=== PATIENT | male | born 1980 | race African-American/Black ===

== ENCOUNTER 2016-06-29 20:42 | Emergency (ER) | payer SELFPAY ==
[2016-06-29 22:30] VITALS: BP 133/98
--- NOTE | 2016-06-29 23:39 | UC ---
Jaycee Gonzalez Michael, scribed for Dyan Kinsey DO on 06/29/16 at 2121 . Abdominal Pain Male HPI - HPI Summary HPI Summary: 35 y/o male comes to [facility] presenting with intermittent episodes of LLQ abd pain that started 2 days ago after eating enchiladas. The pt reports that the abd pain has gradually worsened over the past 2 days. The abd pain is aggravated with ambulation and sitting on soft surfaces. The abd is radiated to the back. The pt reports that he will randomly have sudden sharp pains while he is sitting. He describes the pain as a 7-8 out of 10 on a pain severity scale. He also c/o decreased appetite, fever, and chills. At home his temperature was 101.3 and fluctuated the past couple of days. He has increased intake of water. The pt also declines blood in stool, urine sx, and n/v/d. The PMHx is significant for diverticulitis with an abscess. The pt reports that his symptoms are similar to his previous with the abscess, but less severe. At the current visit there is general swelling but no lump is present. The FHx is significant for HTN. - History of Current Complaint Chief Complaint: UCAbdominalPain Stated Complaint: ABDOMINAL PAIN Time Seen by Provider: 06/29/16 20:58 Hx Obtained From: Patient, Medical Records Onset/Duration: Gradual Onset, Lasting Days, Still Present Timing: Intermittent Episodes Lasting: Severity Initially: Mild Severity Currently: Moderate Pain Intensity: 8 Pain Scale Used: 0-10 Numeric Location: Discrete At: LLQ Radiates: Yes Radiates to: Back, Flank Character: Sharp Aggravating Factor(s):: Movement Alleviating Factor(s): Nothing Associated Signs And Symptoms: Positive: Diaphoresis, Fever, Back Pain, Decreased Appetite, Other - abd pain. chills.. Negative: Cough, Chest Pain, Dizzy, Constipation, Blood in Stool, Urinary Symptoms, Nausea, Vomiting, Diarrhea - Allergies/Home Medications Allergies/Adverse Reactions: Allergies Allergy/AdvReac Type Severity Reaction Status Date / Time STRAWBERRIES Allergy Nausea Uncoded 06/29/16 20:54 Home Medications: Home Medications Aspirin TAB* [Aspirin 325 MG TAB*] 2 tab PO PRN 06/29/16 [History] PMH/Surg Hx/FS Hx/Imm Hx Endocrine History Of: Denies: Diabetes, Thyroid Disease Cardiovascular History Of: Denies: Cardiac Disorders, Hypertension, Congestive Heart Failure Respiratory History Of: Denies: COPD, Asthma GI/ History Of: Reports: Diverticulitis Denies: Ulcer, Renal Disease - Surgical History Surgical History: None - Family History Known Family History: Positive: Hypertension Negative: Cardiac Disease, Diabetes - Social History Occupation: Unemployed Lives: With Family Alcohol Use: Daily Alcohol Amount: 50 OUNCES/NIGHT Substance Use Type: Marijuana Substance Use Comment - Amount & Last Used: OCCASIONALLY Smoking Status (MU): Current Every Day Smoker Type: Cigarettes Amount Used/How Often: 1/2 PPD Length of Time of Smoking/Using Tobacco: 15 years Have You Smoked in the Last Year: Yes Household Exposure Type: Cigarettes - Immunization History Most Recent Influenza Vaccination: never Most Recent Tetanus Shot: UTD Most Recent Pneumonia Vaccination: never Review of Systems Constitutional: Fever, Chills Skin: Negative Eyes: Negative ENT: Negative Respiratory: Negative Cardiovascular: Negative Gastrointestinal: Negative - n/v/d., Abdominal Pain, Other - decreased appetite Genitourinary: Other - no blood in stool Motor: Negative Neurovascular: Negative Musculoskeletal: Negative Neurological: Negative Psychological: Negative All Other Systems Reviewed And Are Negative: Yes Physical Exam Triage Information Reviewed: Yes Appearance: Well-Appearing, Well-Nourished, Pain Distress - mild to moderate pain distress with movement Vital Signs: Initial Vital Signs Temp 98.9 F 06/29/16 20:49 Pulse 106 06/29/16 20:49 Resp 16 06/29/16 20:49 BP 159/90 06/29/16 20:49 Pulse Ox 100 06/29/16 20:49 Vital Signs Reviewed: Yes Eyes: Positive: Conjunctiva Clear. Negative: Discharge ENT: Positive: Hearing grossly normal. Negative: Muffled/hoarse voice Neck: Positive: Supple, Nontender Respiratory: Positive: Lungs clear, Normal breath sounds, No respiratory distress, No accessory muscle use Cardiovascular: Positive: RRR, No Murmur Abdomen Description: Positive: Soft, CVA Tenderness (L). Negative: Nontender - LLQ tenderness. exquisite flank tenderness over the flank, Distended, Guarding, McBurney's Point Tenderness Bowel Sounds: Positive: Hyperactive Musculoskeletal Exam: Normal Neurological: Positive: Alert, Muscle Tone Normal Psychological: Positive: Age Appropriate Behavior Skin Exam: Normal - dry. warm. nml color. Abd Pain Male Course/Dx - Course Course Of Treatment: pt will be transferred to [facility] [place] and Dr. Jung was consulted at 2153. The pt refuses an ambulance ride and was informed about the risk factors. - Differential Dx/Clinical Impression Differential Diagnosis/HQI/PQRI: Diverticulitis, Renal Colic, Ureteral Stone, Urinary Tract Infection Provider Diagnoses: flank pain, abd pain unknown luis, uti, hematuria Discharge - Discharge Plan Condition: Stable Disposition: AGAINST MEDICAL ADVICE Referrals: No Primary Care Phys,NOPCP [Primary Care Provider] - The documentation as recorded by the Jaycee miller Michael accurately reflects the service I personally performed and the decisions made by , Dyan Kinsey DO.
== END 2016-06-29 22:10 | disposition left against medical advice (07) ==
LOC: UCEAST 20:42
DX: R10.32 Left lower quadrant pain (principal); F17.210 Nicotine dependence, cigarettes, uncomplicated
CPT/HCPCS: 81003; 87086; 99212; G0463

== ENCOUNTER 2016-06-30 10:59 | Inpatient (IN) | payer SELFPAY ==
[~2016-06-30 10:59] MED LIST: Mouth Piece, Nicotine* 1 EACH CARTRIDGE INH ONE
[2016-06-30 11:35] LABS: Hematocrit 41 % (42-52); Hemoglobin 13.9 g/dl (14.0-18.0); Mean Corpuscular HGB Conc 34 g/dl (31-36); Mean Corpuscular Hemoglobin 32 pg (27-31); Mean Corpuscular Volume 95 fL (80-94); Mean Platelet Volume 8 um3 (7.4-10.4); Red Blood Count 4.35 10^6/ul (4.0-5.4); Red Cell Distribution Width 13 % (10.5-15); White Blood Count 12.3 10^3/ul (3.5-10.8)
[2016-06-30 11:38] LABS: Add Diff/Slide Review? Slide Review Added; Comments Flag Yes
[2016-06-30 11:49] LABS: ALT 19 U/L (7-52); AST 13 U/L (13-39); Albumin 4.6 g/dL (3.2-5.2); Alkaline Phosphatase 48 U/L (34-104); Amylase 35 U/L (29-103); Anion Gap 11 mmol/L (2-11); BUN/Creatinine Ratio 12.8 (8-20); Blood Urea Nitrogen 10 mg/dL (6-24); C Reactive Protein 314.01 mg/L (< 5.00); CO2 Carbon Dioxide 25 mmol/L (22-32); Calcium 10.2 mg/dL (8.6-10.3); Chloride 97 mmol/L (101-111); EGFR African American 144.8 (>60); EGFR Non-African American 112.6 (>60); Globulin 4.1 g/dL (2-4); Glucose 120 mg/dL (70-100); Lipase < 10 U/L (11.0-82.0); Potassium 3.7 mmol/L (3.5-5.0); Sodium 133 mmol/L (133-145); Total Protein 8.7 g/dL (6.4-8.9)
[2016-06-30] MEDS ORDERED: Piperac/Tazob 3.375 gm in NS* 3.375 GM/100 ML BAG IVPB ONE ×2 (12:34→18:30)
--- NOTE | 2016-06-30 12:41 | RAD ---
INDICATION: LEFT flank pain and hematuria. History of previous diverticulitis. COMPARISON: May 18, 2014 abdominal ultrasound and May 17, 2014 CT. TECHNIQUE: Multidetector CT images were obtained from the lung bases to the ischial tuberosities. Evaluation of the viscera is limited without IV contrast. Multiplanar reformation. REPORT: Unremarkable visualized inferior thorax. Negative unenhanced liver, gallbladder, pancreas, spleen. Negative for CT abnormality of the upper GI, small bowel, or retrocecal appendix. Arising from the posterior margin of the descending colon there is a 7 cm AP by 6.1 cm transverse by 10 cm cephalocaudal gas and fluid containing abscess collection at the LEFT paracolic gutter extending into the retroperitoneum with mild mass effect on the peripheral margin of the LEFT psoas muscle without an intervening fat plane. Moderate surrounding reticulation of the retroperitoneal and abdominal fat. Previous abscess collection at this location described on the May 17, 2014 exam measuring up to 2.8 x 1.9 x 3.6 cm. Mild colonic diverticulosis most prominent at the descending colon. Negative for ascites or free intraperitoneal air. Negative for hernias. Unchanged small LEFT adrenal nodule consistent with a benign lipid rich adenoma based on low density measurement and absence of an intervening change. Unremarkable RIGHT adrenal gland. Negative for urolithiasis or hydronephrosis. No focal renal lesions evident. The nondilated LEFT ureter courses through the peripheral margin of the LEFT lower quadrant inflammatory change. Unremarkable RIGHT ureter, largely decompressed urinary bladder, and visualized male urogenital structures. Normal size range 0.7 cm diameter LEFT external iliac lymph nodes. Negative for lymphadenopathy. Normal diameter abdominal aorta and iliac arteries. Physiologic distention of the IVC. Negative for suspicious osseous lesions. IMPRESSION: Probable diverticular disease related acute or possibly chronic progressive LEFT retroperitoneal abscess collection arising from the descending colon. Surgical consultation needed. Negative for associated bowel obstruction. Results discussed with Dr. Sutton 06/30/2016 12:36 PM EST
--- NOTE | 2016-06-30 13:40 | HP ---
H&P (Free Text) History and Physical: CC: Left flank pain, fever, chills. HPI: 35 yoM with prior h/o diverticulitis and abscess in 2014, presents to the ED with similar symptoms of L flank pain, sensation of mass, associated with fever to 102 and rigors. He reports he had eaten some corn on Saturday and then Saturday he started having L flank pain. He has had this occasionally but it usually resolves after less than 1 day. His symptoms persisted and became more severe. By he was avoiding eating because he thought it would make the pain worse. He started having fever and chills. He reports no diarrhea. He reports no dysuria, hematuria, or h/o kidney stones. He was seen at the [facility] last pm and was noted to have microscopic hematuria and dx'd with kidney stone. He was discharged but returned to the ED today because of the pain. PMH: Diverticulitis with abscess--inpt admission in 2014 that resolved with IV abx PSH: None Meds: None All: Strawberries; NKDA SH: +tob (10-20 pkyr); EtOH (12 pk beer/week); MJ no IVDA FH: Mother of aneurysm, HTN. No anesthesia reaction; no blood clots; no cancer. ROS: 14 pt review performed; Pertinents +/- as above, otherwise negative. PE: Vital Signs Temp 97.9 F 06/30/16 11:25 Pulse 92 06/30/16 13:30 Resp 18 06/30/16 11:25 BP 138/89 06/30/16 13:30 Pulse Ox 99 06/30/16 13:30 HEENT: NCAT; EOMI; anicteric sclera; mmm; no otorhinorrhea; dentition intact. Neck: symmetrical, no LILLIAN. Lungs: CTA B NO W/R/R. Heart: Reg s1s2 no M/R/G. Abd: No scars, softly distended; exquisitely tender in LLQ with palpable fullness; +guarding. Ext: Warm, no C/C/E; 2+ bilat DP/PT pulses. Laboratory Results - last 24 hr 06/30/16 06/30/16 06/30/16 11:20 11:20 11:20 WBC 12.3 H RBC 4.35 Hgb 13.9 L Hct 41 L MCV 95 H MCH 32 H MCHC 34 RDW 13 Plt Count 314 MPV 8 Neut % (Auto) 75.3 Lymph % (Auto) 6.4 L [place] % (Auto) 17.7 H Eos % (Auto) 0.5 Baso % (Auto) 0.1 Absolute Neuts (auto) 9.2 H Absolute Lymphs (auto) 0.8 L Absolute Monos (auto) 2.2 H Absolute Eos (auto) 0.1 Absolute Basos (auto) 0 Absolute Nucleated RBC 0.02 Nucleated RBC % 0.2 Sodium 133 Potassium 3.7 Chloride 97 L Carbon Dioxide 25 Anion Gap 11 BUN 10 Creatinine 0.78 Est GFR ( Amer) 144.8 Est GFR (Non-Af Amer) 112.6 BUN/Creatinine Ratio 12.8 Glucose 120 H Lactic Acid 1.0 Calcium 10.2 Total Bilirubin 1.70 H AST 13 ALT 19 Alkaline Phosphatase 48 C-Reactive Protein 314.01 H Total Protein 8.7 Albumin 4.6 Globulin 4.1 H Albumin/Globulin Ratio 1.1 Amylase 35 Lipase < [address] abd/pel noncontrast: 7 x 6 x 10 cm abscess arising from the descending colon with surrounding inflammatory changes; no kidney stones. IMP: 35 yo M with recurrent diverticulitis with abscess. PLAN/Recommendation: I discussed the findings with the patient and his . We discussed the management options including non-surgical treatment with IV abx , use of percutaneous drainage, and the role of surgery. At this point I think he is best served by surgical drainage of the abscess with sigmoid rsxn, end colostomy. We discussed the indications, risks, benefits, alternatives, and option of no treatment. We discussed expectations regarding hospital stay, overall recovery, and the need for subsequent surgery for colostomy reversal. The risks were explained, including, not limited to, bleeding, infection, scarring, pain, blood clots, pneumonia, visceral injury, need for additional procedures, and the risks of GETA. He had all questions answered. He states understanding and agrees to proceed.
[2016-06-30] MEDS ORDERED: Propofol* 10 MG/ML 20 ML BTL IV PUSH ONE ×2 (14:08→15:19)
[2016-06-30] MEDS ORDERED: Ketorolac INJ* 30 MG/ML 1 ML VIAL ONE (14:08)
[2016-06-30] MEDS ORDERED: Famotidine IV* 10 MG/ML 2 ML (20 mg) ONE ×2 (14:08→14:10)
[2016-06-30] MEDS ORDERED: Ondansetron INJ* 2 MG/ML VIAL ONE (14:08)
[2016-06-30] MEDS ORDERED: Lidocaine 2% PF* 5 ML VIAL ONE (14:08)
[2016-06-30] MEDS ORDERED: KETAMINE HCL* 50 MG/ML 10 ML VIAL ONE (14:09)
[2016-06-30] MEDS ORDERED: fentaNYL* 50 MCG/ML 5 ML VIAL (250 MCG VIAL) ONE ×2 (14:09→15:02)
[2016-06-30] MEDS ORDERED: Midazolam* 1 MG/ML 5 ML VIAL (5 MG) ONE (14:09)
[2016-06-30] MEDS ORDERED: Rocuronium* 10 MG/ML VIAL ONE ×2 (14:10→15:06)
[2016-06-30] MEDS ORDERED: Labetalol IV* 5 MG/ML 20 ML VIAL ONE (15:05)
[2016-06-30] MEDS ORDERED: Metoclopramide IV* 5 MG/ML 2 ML VIAL ONE (15:38)
[2016-06-30] MEDS ORDERED: Neostigmine Methylsulfate* 2 MG/2 ML SYRINGE ONE (16:35)
[2016-06-30] MEDS ORDERED: Glycopyrrolate IV* 0.2 MG/ML 1 ML VIAL ONE (16:35)
[2016-06-30] MEDS ORDERED: HYDROmorphone* 1 MG/ML 1 ML SYR ONE (16:37)
[2016-06-30] MEDS ORDERED: Bupivacaine 0.5% W/EPI SDV* 30 ML VIAL ONE (16:58)
--- NOTE | 2016-06-30 17:00 | ED ---
Jazmin Gonzalez Rebecca, scribed for Simeon Sutton MD on 06/30/16 at 1117 . Back Pain - HPI Summary HPI Summary: Pt is a 35 y/o M who presents to ED c/o L flank pain. Pain began suddenly 4 days ago and has been intermittent since onset. Reports pain is only present when relaxing on a soft surface. At its worst, pain is 4/10, currently pain is 0 /10. When present, pain is characterized as sharp. Sx aggravated by relaxing, alleviated by movement. Denies N/V. PMHx diverticulitis. States that he ate "something I shouldn't have" a few days ago, prior to onset of pain. - History of Current Complaint Chief Complaint: EDFlankPain Stated Complaint: LOWER BACK PAIN/BLOOD IN URINE Time Seen by Provider: 06/30/16 11:07 Hx Obtained From: Patient Onset/Duration: Sudden Onset - 4 days ago Onset/Duration: Started Days Ago - 4 days ago Timing: Intermittent - Present when relaxed Back Pain Location: Is Discrete @ - L flank Severity Initially: Moderate Severity Currently: None Pain Intensity: 0 Pain Scale Used: 0-10 Numeric Character: Sharp Aggravating Symptom(s): Nothing - Rest Alleviating Symptom(s): Position - Movement Associated Signs And Symptoms: Positive: Negative - Allergies/Home Medications Allergies/Adverse Reactions: Allergies Allergy/AdvReac Type Severity Reaction Status Date / Time STRAWBERRIES Allergy Nausea Uncoded 06/30/16 13:03 PMH/Surg Hx/FS Hx/Imm Hx Endocrine/Hematology History: Denies: Hx Diabetes, Hx Systemic Lupus Erythematosus, Hx Thyroid Disease Cardiovascular History: Denies: Hx Congestive Heart Failure, Hx Hypertension Respiratory History: Denies: Hx Asthma, Hx Chronic Obstructive Pulmonary Disease (COPD) GI History: Reports: Other GI Disorders - Hx diverticulitis Denies: Hx Ulcer History: Denies: Hx Renal Disease - Cancer History Hx Chemotherapy: No Infectious Disease History: No Infectious Disease History: Denies: Hx Hepatitis, Hx Human Immunodeficiency Virus (HIV), Traveled Outside the [place] in Last 30 Days - Family History Known Family History: Positive: Hypertension Negative: Cardiac Disease, Diabetes - Social History Alcohol Use: Daily Alcohol Amount: 50 OUNCES/NIGHT Substance Use Type: Reports: Marijuana Substance Use Comment - Amount & Last Used: OCCASIONALLY Smoking Status (MU): Current Every Day Smoker Type: Cigarettes Amount Used/How Often: 1/2 PPD Length of Time of Smoking/Using Tobacco: 15 years Have You Smoked in the Last Year: Yes Review of Systems Negative: Vomiting, Nausea Positive: Arthralgia - L flank pain All Other Systems Reviewed And Are Negative: Yes Physical Exam Triage Information Reviewed: Yes Vital Signs On Initial Exam: Initial Vitals Temp Pulse Resp BP Pulse Ox 97.8 F 110 16 149/97 99 06/30/16 11:01 06/30/16 11:01 06/30/16 11:01 06/30/16 11:01 06/30/16 11:01 Vital Signs Reviewed: Yes Appearance: Positive: Well-Appearing, No Pain Distress Skin: Positive: Warm, Skin Color Reflects Adequate Perfusion, Dry Head/Face: Positive: Normal Head/Face Inspection Eyes: Positive: EOMI, LONNIE ENT: Positive: Normal ENT inspection Neck: Positive: Supple, Nontender Respiratory/Lung Sounds: Positive: Clear to Auscultation, Breath Sounds Present Cardiovascular: Positive: RRR, Pulses are Symmetrical in both Upper and Lower Extremities Abdomen Description: Positive: Nontender, Soft Bowel Sounds: Positive: Present Musculoskeletal: Positive: Normal, Strength/ROM Intact Neurological: Positive: Normal, Sensory/Motor Intact, Alert, Oriented to Person Place, Time Psychiatric: Positive: Normal, Affect/Mood Appropriate Diagnostics - Vital Signs Vital Signs Temp Pulse Resp BP Pulse Ox 06/30/16 11:01 97.8 F 110 16 149/97 99 - Laboratory Lab Results: Lab Results 06/30/16 06/30/16 06/30/16 Range/Units 11:20 11:20 11:20 WBC 12.3 H (3.5-10.8) 10^3/ul RBC 4.35 (4.0-5.4) 10^6/ul Hgb 13.9 L (14.0-18.0) g/dl Hct 41 L (42-52) % MCV 95 H (80-94) fL MCH 32 H (27-31) pg MCHC 34 (31-36) g/dl RDW 13 (10.5-15) % Plt Count 314 (150-450) 10^3/ul MPV 8 (7.4-10.4) um3 Neut % (Auto) 75.3 (38-83) % Lymph % (Auto) 6.4 L (25-47) % [place] % (Auto) 17.7 H (1-9) % Eos % (Auto) 0.5 (0-6) % Baso % (Auto) 0.1 (0-2) % Absolute Neuts (auto) 9.2 H (1.5-7.7) 10^3/ul Absolute Lymphs (auto) 0.8 L (1.0-4.8) 10^3/ul Absolute Monos (auto) 2.2 H (0-0.8) 10^3/ul Absolute Eos (auto) 0.1 (0-0.6) 10^3/ul Absolute Basos (auto) 0 (0-0.2) 10^3/ul Absolute Nucleated RBC 0.02 10^3/ul Nucleated RBC % 0.2 Sodium 133 (133-145) mmol/L Potassium 3.7 (3.5-5.0) mmol/L Chloride 97 L (101-111) mmol/L Carbon Dioxide 25 (22-32) mmol/L Anion Gap 11 (2-11) mmol/L BUN 10 (6-24) mg/dL Creatinine 0.78 (0.67-1.17) mg/dL Est GFR ( Amer) 144.8 (>60) Est GFR (Non-Af Amer) 112.6 (>60) BUN/Creatinine Ratio 12.8 (8-20) Glucose 120 H (70-100) mg/dL Lactic Acid 1.0 (0.5-2.0) mmol/L Calcium 10.2 (8.6-10.3) mg/dL Total Bilirubin 1.70 H (0.2-1.0) mg/dL AST 13 (13-39) U/L ALT 19 (7-52) U/L Alkaline Phosphatase 48 (34-104) U/L C-Reactive Protein 314.01 H (< 5.00) mg/L Total Protein 8.7 (6.4-8.9) g/dL Albumin 4.6 (3.2-5.2) g/dL Globulin 4.1 H (2-4) g/dL Albumin/Globulin Ratio 1.1 (1-3) Amylase 35 (29-103) U/L Lipase < 10 L (11.0-82.0) U/L Result Diagrams: 06/30/16 11:20 06/30/16 11:20 Lab Statement: Any lab studies that have been ordered have been reviewed, and results considered in the medical decision making process. - CT Abd/Pel CT CT Interpretation: Positive (See Comments) - Probable diverticular disease related acute or possibly chronic progressive LEFT retroperitoneal abscess collection arising from the descending colon. Surgical consultation needed. Negative for associated bowel obstruction. Results discussed with Dr. Sutton 06/30 12:[address] Interpretation Completed By: Radiologist Back Pain Course/Dx - Course Assessment/Plan: Pt is a 35 y/o M who presents to ED c/o L flank pain. Pain began suddenly 4 days ago and has been intermittent since onset. Reports pain is only present when relaxing on a soft surface. At its worst, pain is 4/10, currently pain is 0/10. When present, pain is characterized as sharp. Sx aggravated by relaxing, alleviated by movement. Denies N/V. PMHx diverticulitis. States that he ate "something I shouldn't have" a few days ago, prior to onset of pain. Blood works shows a WBC of 12.3, mild anemia, glucose of 120, CRP of 314. Abd/Pel CT is read Probable diverticular disease related acute or possibly chronic progressive LEFT retroperitoneal abscess collection arising from the descending colon. Surgical consultation needed. Negative for associated bowel obstruction. In the ER course, pt was given IV fluids, 1 doze of Zosyn. I disclosed my case with Dr. Husain from surgery who came and evaluated the pt. After his assessment, he determined that he will accept the pt for admission and will take the pt to the OR. He is hemodynamically stable and AxOx3. - Diagnoses Differential Diagnosis/HQI/PQRI: Positive: Other - REnal colic, diverticulitis, constipation, colitis Provider Diagnoses: Bowel perforation - Provider Notifications Discussed Care of Patient With: Dr. Husain, surgeon, who will evaluate pt in the ED. Time Discussed With Above Provider: 12:40 Discharge - Discharge Plan Condition: Stable Disposition: ADMITTED TO [facility] documentation as recorded by the Jazmin miller Rebecca accurately reflects the service I personally performed and the decisions made by me, Simeon Sutton MD.
[2016-06-30] MEDS ORDERED: fentaNYL* 50 MCG/ML 2 ML VIAL (100 MCG VIAL) ONE (17:05)
[2016-06-30] MEDS ORDERED: DiMENhydriNATE IV* 50 MG/ML VIAL IV PUSH PRN (17:25)
[2016-06-30] MEDS ORDERED: Ondansetron INJ* 2 MG/ML VIAL IV PRN (17:25)
[2016-06-30] MEDS ORDERED: HYDROmorphone* 1 MG/ML 1 ML SYR IV PRN (17:25)
[2016-06-30] MEDS ORDERED: fentaNYL* 50 MCG/ML 2 ML VIAL (100 MCG VIAL) IV PRN (17:25)
[2016-06-30] MEDS ORDERED: Ketorolac INJ* 30 MG/ML 1 ML VIAL IM PRN (17:27)
[2016-06-30] MEDS ORDERED: diPHENhydraMINE IV* 25 MG in NS 0.9% 50 ML* 50 ML IVPB PRN (17:32)
[2016-06-30] MEDS ORDERED: Al Hydrox/Mg Hydrox/Simet LIQ* 30 ML UDC PO PRN (17:33)
--- NOTE | 2016-06-30 17:39 | SURGPN ---
Brief Operative Note - Surgery Procedures: PREOP/POSTOP DX: COLONIC DIVERTICULITIS WITH ABSCESS PROC: EXPL LAPAROTOMY, DRAINAGE OF RETROPERITONEAL ABSCESS, DIVERTING COLOSTOMY SURG: MECENAS ASSIST: NONE ANES: GET/TOAL EBL: 50ML IVF: 3.1 L LR U/O: 150 ML SPEC: ABSCESS FLUID DRAIN: 10MM ANA COMPL: NONE COND: STABLE TO RR
[2016-06-30] MEDS ORDERED: Nicotine Inhaler* 10 MG AMP INH PRN (20:08)
[2016-07-01] MEDS: HYDROmorphone* 1 MG/ML 1 ML SYR IV SLOW PU PRN ×5 (00:59→23:56)
[2016-07-01] MEDS: Piperac/Tazob 3.375 gm in NS* 3.375 GM/100 ML BAG IVPB SCH ×4 (01:02→18:42)
[2016-07-01 05:27] LABS: Urine Bacteria Absent (Absent); Urine Bilirubin Negative (Negative); Urine Glucose Negative (Negative); Urine Nitrite Negative (Negative)
[2016-07-01 07:10] LABS: Calcium 8.4 mg/dL (8.6-10.3); EGFR African American 156.3 (>60); EGFR Non-African American 121.6 (>60)
[2016-07-01 07:13] LABS: Hematocrit 35 % (42-52); Hemoglobin 11.7 g/dl (14.0-18.0); Mean Corpuscular HGB Conc 33 g/dl (31-36); Mean Corpuscular Hemoglobin 32 pg (27-31); Mean Corpuscular Volume 95 fL (80-94); Mean Platelet Volume 8 um3 (7.4-10.4); Red Blood Count 3.69 10^6/ul (4.0-5.4); Red Cell Distribution Width 13 % (10.5-15); White Blood Count 10.9 10^3/ul (3.5-10.8)
[2016-07-01 07:16] LABS: Comments Flag Yes
[2016-07-01] MEDS: Ketorolac INJ* 30 MG/ML 1 ML VIAL IV SCH ×3 (09:47→22:26)
--- NOTE | 2016-07-01 09:47 | PN ---
Progress Note - Progress Note SOAP: Subjective: C/o right sided abd pain, pain in stomach when he swallows, and dry throat. Overall feels he is better. Objective: Vital Signs Temp 98.1 F 07/01/16 07:51 Pulse 89 07/01/16 07:51 Resp 22 07/01/16 08:17 BP 148/101 07/01/16 07:51 Pulse Ox 99 07/01/16 07:51 awake, alert, in NAD abd: dressings intact; ostomy pink (-) gas; distended abd; ANA with SS o/p; tenderness right side. u/o=325/8h; ANA=30ml/8h Laboratory Results - last 24 hr 06/30/16 06/30/16 06/30/16 11:20 11:20 11:20 WBC 12.3 H RBC 4.35 Hgb 13.9 L Hct 41 L MCV 95 H MCH 32 H MCHC 34 RDW 13 Plt Count 314 MPV 8 Neut % (Auto) 75.3 Lymph % (Auto) 6.4 L [place] % (Auto) 17.7 H Eos % (Auto) 0.5 Baso % (Auto) 0.1 Absolute Neuts (auto) 9.2 H Absolute Lymphs (auto) 0.8 L Absolute Monos (auto) 2.2 H Absolute Eos (auto) 0.1 Absolute Basos (auto) 0 Absolute Nucleated RBC 0.02 Nucleated RBC % 0.2 Sodium 133 Potassium 3.7 Chloride 97 L Carbon Dioxide 25 Anion Gap 11 BUN 10 Creatinine 0.78 Est GFR ( Amer) 144.8 Est GFR (Non-Af Amer) 112.6 BUN/Creatinine Ratio 12.8 Glucose 120 H Lactic Acid 1.0 Calcium 10.2 Total Bilirubin 1.70 H AST 13 ALT 19 Alkaline Phosphatase 48 C-Reactive Protein 314.01 H Total Protein 8.7 Albumin 4.6 Globulin 4.1 H Albumin/Globulin Ratio 1.1 Amylase 35 Lipase < 10 L Urine Color Urine Appearance Urine pH Ur Specific [place] Urine Protein Urine Ketones Urine Blood Urine Nitrate Urine Bilirubin Urine Urobilinogen Ur Leukocyte Esterase Urine WBC (Auto) Urine RBC (Auto) Urine Bacteria Urine Glucose 07/01/16 07/01/16 07/01/16 05:10 06:30 06:30 WBC 10.9 H RBC 3.69 L Hgb 11.7 L Hct 35 L MCV 95 H MCH 32 H MCHC 33 RDW 13 Plt Count 340 MPV 8 Neut % (Auto) 71.0 Lymph % (Auto) 8.8 L [place] % (Auto) 19.7 H Eos % (Auto) 0.2 Baso % (Auto) 0.3 Absolute Neuts (auto) 7.7 Absolute Lymphs (auto) 1.0 Absolute Monos (auto) 2.1 H Absolute Eos (auto) 0 Absolute Basos (auto) 0 Absolute Nucleated RBC 0 Nucleated RBC % 0 Sodium 132 L Potassium 4.0 Chloride 100 L Carbon Dioxide 25 Anion Gap 7 BUN 8 Creatinine 0.73 Est GFR ( Amer) 156.3 Est GFR (Non-Af Amer) 121.6 BUN/Creatinine Ratio 11.0 Glucose 129 H Lactic Acid Calcium 8.4 L Total Bilirubin AST ALT Alkaline Phosphatase C-Reactive Protein Total Protein Albumin Globulin Albumin/Globulin Ratio Amylase Lipase Urine Color [place] Urine Appearance Cloudy Urine pH 5.0 Ur Specific [place] 1.030 Urine Protein 1+(30 mg/dl) H Urine Ketones Trace H Urine Blood 1+ H Urine Nitrate Negative Urine Bilirubin Negative Urine Urobilinogen Positive H Ur Leukocyte Esterase Negative Urine WBC (Auto) Trace(0-5/hpf) Urine RBC (Auto) 3+(>10/hpf) H Urine Bacteria Absent Urine Glucose Negative Assessment: POD#1 s/p abscess drainage/colostomy for diverticular abscess. Plan: Sips only. Cont Zosyn and ANA drain. Await GI fct. Pulm toilet. Ambulate.
--- NOTE | 2016-07-01 10:45 | OP ---
CC: [facility] OPERATIVE REPORT: DATE OF OPERATION: 06/30/16 DATE OF : 78 SURGEON: Marcus Husain MD WEATHER ANALYST: None. ANESTHESIOLOGIST: Dr. Saucedo. ANESTHESIA: General endotracheal. PRE-OP DIAGNOSIS: Colonic diverticulitis with abscess. POST-OP DIAGNOSIS: Colonic diverticulitis with abscess. OPERATIVE PROCEDURE: Exploratory laparotomy, drainage of retroperitoneal abscess, and diverting col ostomy. ESTIMATED BLOOD LOSS: 50 mL. IV FLUIDS: 3.1 L of crystalloids. SPECIMEN: Abscess fluid for culture and sensitivity. DRAINS: 10-mm Wayne-Rogers. COMPLICATIONS: None. COUNT: Instrument, needle, and sponge counts were correct. DESCRIPTION OF PROCEDURE: The patient was brought to the operating room and placed on the table sup ine. Sequential compression devices were placed on both lower extremities. General anesthesia was administered. A Pisano catheter was placed. His abdomen was prepped and draped in the usual sterile fashion. A time-out was performed. A midline laparotomy was created and after entering the peritoneal cavity, incision was further exte nded from about 5 inches above the umbilicus down to the pelvis. There was a piece of omentum adheri ng to the sigmoid colon. This was freed and the bowel was inspected. The small bowel appeared to b e normal from the ileocecal valve to the ligament to Treitz. Liver and gallbladder were normal. Th e ascending colon and transverse colon were normal. The descending colon was normal to the point wh ere in the mid descending colon, the bowel was extremely thickened all the way down to the area of t he sigmoid colon and there was edema throughout the bowel, along with the mesentery and the bowel wa s hard and quite scarred down. The distal sigmoid and rectum were normal. The area of the abscess was noted to be retroperitoneal on the CT scan and so the approach to the abscess was from the later al aspect. The white line of Toldt was followed from the sigmoid colon proximally to the area where the retroperitoneum became very firm and thickened and it was difficult to mobilize the colon from this site. Ultimately, I placed an 18- gauge needle into the retroperitoneum just lateral to the co thien and aspirated and this returned thick george pus. The needle was withdrawn and that fluid was subm itted for culture and sensitivity and then using a curved clamp, I entered into the site and entered into a large abscess cavity. Suction was placed into this. It was aspirated of all pus and then t he abscess cavity was irrigated. Because of the dense inflammation of the colon and edema in the de sentery, it was thought it was unsafe to try to perform a resection there. So, therefore it was dec ided to just divert without attempting resection. The normal-appearing bowel just proximal to the a kaushal of inflammation was mobilized and I had to take down the splenic flexure which was performed wit h a LigaSure and the use of the Bookwalter retractor. Once the splenic flexure was taken down, I fu rther mobilized the transverse colon to find the gastrocolic ligament to get adequate length on the colon. The colon was divided just proximal to the inflamed area using a JENARO-80 stapler. A 10-mm Wayne-Rogers drain was placed through a separate stab wound in the left flank and the drain was placed into the abscess cavity. The initial site for the ostomy was selected in the left lower quadrant and after excising a disc of skin and creating the aperture, it was discovered that there was an inadequate length on the bowel for this although it was felt that there was adequate length p reviously. Therefore, I had to close this wound using #1 Polysorb to close the posterior rectus carr th from the inside in a running fashion and the anterior rectus sheath was closed with interrupted # 1 Polysorbs. The skin was closed there with xin transversely and the ostomy site was re-sited m ore superiorly above the umbilicus on the left side. After creating the aperture in the abdominal w all, the bowel was brought through this with ease. The abdomen was irrigated with warm saline and a fter assuring counts to be correct, the abdomen was closed with #1 Polysorb running for the midline fascia. The skin incision was partially closed with xin packed in between and the colostomy was matured with 4-0 Polysorb and a digit was placed within the lumen to assure its patency. The ostom y appeared pink and viable. The drain was sutured to the skin with 3-0 Surgipro and placed to sucti on bulb. Dressings were applied and ostomy appliance. The patient tolerated the procedure well. H e was extubated and transferred to recovery room in stable condition. [id number]/[facility] #: [id number]
[2016-07-01] MEDS: Ondansetron INJ* 2 MG/ML VIAL IV PRN (20:18)
[2016-07-02] MEDS: Ondansetron INJ* 2 MG/ML VIAL IV PRN ×2 (01:16→06:59)
[2016-07-02] MEDS: Piperac/Tazob 3.375 gm in NS* 3.375 GM/100 ML BAG IVPB SCH ×4 (01:19→18:43)
[2016-07-02 06:51] LABS: Hematocrit 33 % (42-52); Mean Corpuscular HGB Conc 34 g/dl (31-36); Mean Corpuscular Hemoglobin 32 pg (27-31); Mean Corpuscular Volume 94 fL (80-94); Mean Platelet Volume 8 um3 (7.4-10.4); Red Blood Count 3.45 10^6/ul (4.0-5.4); Red Cell Distribution Width 13 % (10.5-15); White Blood Count 10.7 10^3/ul (3.5-10.8)
[2016-07-02] MEDS: HYDROmorphone* 1 MG/ML 1 ML SYR IV SLOW PU PRN (07:01)
[2016-07-02 07:14] LABS: BUN/Creatinine Ratio 11.3 (8-20); Calcium 9.1 mg/dL (8.6-10.3); EGFR African American 188.8 (>60); EGFR Non-African American 146.8 (>60); Potassium 3.5 mmol/L (3.5-5.0)
--- NOTE | 2016-07-02 09:27 | SURGPN ---
Subjective - Introduction -: Doing well, denies any more nausea or vomiting. Minimal incisional pain, ambulatory down the sher. Denies fever or chills. - Medications -: Active Medications Generic Name Dose Route Start Last Admin Trade Name Freq PRN Reason Stop Dose Admin Al Hydrox/Mg Hydrox/Simethicone 30 ml 06/30/16 17:33 Maalox Plus* PO Q6H PRN HEARTBURN Hydromorphone HCl 1 mg 06/30/16 17:31 07/02/16 07:01 Dilaudid Iv* IV SLOW PU 1 mg Q2H PRN Administration PAIN Diphenhydramine HCl 25 mg/ 50.5 mls @ 101 mls/hr 06/30/16 17:32 Sodium Chloride IVPB Q6H PRN ITCHING Piperacillin Sod/Tazobactam Sod 3.375 gm in 100 mls @ 200 mls/hr 07/01/16 00: 30 07/02/16 07:33 Zosyn 3.375 Gm In Ns Premix* IVPB 200 mls/hr Q6H [facility] Administration Lactated Ringer's 1,000 mls @ 0 mls/hr 07/01/16 21:46 Lactated Ringers 1000 Ml Bag* IV PER RATE PRN IF U/O LESS THAN 150 ML/4 HRS Wide Open Potassium Chloride/Dextrose 1,000 mls @ 125 mls/hr 07/02/16 09:00 D5w 1/2 Ns Kcl 20 Meq 1000 Ml* IV PER RATE [facility] Lactated Ringer's 1,000 mls @ 125 mls/hr 07/02/16 10:00 Lactated Ringers 1000 Ml Bag* IV PER RATE [facility] Ketorolac Tromethamine 30 mg 07/02/16 08:00 Toradol Inj* IV 07/07/16 02:01 Q6H [facility]OT[facility] Nicotine 10 mg 06/30/16 20:08 06/30/16 20:35 Nicotine Inhaler* INH 10 mg Q2H PRN Administration CRAVINGS Ondansetron HCl 4 mg 06/30/16 17:27 07/02/16 06:59 Zofran Inj* IV 4 mg Q4H PRN Administration NAUSEA/VOMITING Objective - Objective -: Alert and oriented, walking down sher, in NAD. - Intake and Output -: Intake & Output 06/30/16 07/01/16 07/02/16 07/03/16 05:59 06:59 06:59 06:59 Intake Total 4644 Output Total 1155 Balance 3489 Weight Intake: IV Fluids 4197 LR 4158 NS 39 IVPB 207 Zosyn 207 Oral 240 Output: ANA #1 30 Pisano 875 Colostomy Emesis 250 Other: Estimated Blood Loss Comment Surgical Physical Exam - Comments -: Vitals reviewed, afebrile. Lungs CTA bilaterally. Abdomen soft and mildly distended. Moderate incisional tenderness. No gaurding or rigidity. Incisions clean and dry. Packing gauze and dressing changed today. Stoma pink and viable with gtts pinkish serous output. J-vac with 20cc SS output. Ext. with no edema Pisano with pink turbid urine. Assessment and Plan - Assessment -: A 35 y/o gentleman, s/p exploratory laparotomy with diverting colostomy, clinically and hemodynamically stable. - Plan Surgical Plan of Care: Increase Activity Additional Comments: Post-op ileus, increase activity, ice chips for now. Hypertension, patient has never seen a primary care provider in the past. Will call medical services for a consult by attending hospitalist. Await bowel functions. Dressing changed today, next dressing change on Saturday or prn if saturated.
[2016-07-02] MEDS: Ketorolac INJ* 30 MG/ML 1 ML VIAL IV SCH ×3 (10:11→20:12)
[2016-07-02] MEDS: D5W 1/2 NS KCl 20 Meq 1000 ML* 1,000 ML IV SCH ×2 (10:11→20:18)
[2016-07-02] MEDS ORDERED: Lidocaine 2% JELLY* 6 ML JELLY TOPICAL ONE (13:15)
[2016-07-02] MEDS ORDERED: Lidocaine 2% VISCOUS* 15 ML UDC PO ONE (13:19)
[2016-07-02] MEDS: amLODIPine TAB* 5 MG PO SCH (13:27)
[2016-07-02] MEDS ORDERED: Labetalol IV* 5 MG/ML 20 ML VIAL IV PUSH PRN (13:33)
--- NOTE | 2016-07-02 13:33 | CONSULT ---
Subjective Date of Service: 07/02/16 Interval History: 35 yo M with no PMH p/w abdominal pain, found to have diverticulitis with abscess, now s/p ex-lap, abscess drainage and diverting colostomy. Found to have elevated BPs over past days. Patient reports no hx of HTN that he is aware of although mother had HTN. Denies HARPER, has had some N/V during the hospitalization. Feels pain has been well controlled after surgery. Is currently on diet of ice chips. States he has not seen a doctor in a few years. Family History: Unchanged from Admission - As per initial H&P Social History: Unchanged from Admission - As per initial H&P Past Medical History: Unchanged from Admission - As per initial H&P Review of Systems - Measurements Intake and Output: Intake and Output Last 24 Hours 06/30/16 07/01/16 07/02/16 07/03/16 05:59 06:59 06:59 06:59 Intake Total 4644 Output Total 1155 135 Balance 3489 -135 Weight Intake: IV Fluids 4197 LR 4158 NS 39 IVPB 207 Zosyn 207 Oral 240 Output: ANA #1 30 Pisano 875 135 Colostomy Emesis 250 Other: Estimated Blood Loss Comment - Review of Systems Constitutional Symptoms: Negative: Fever Dermatology: Positive: Normal HEENT: Positive: Normal Eyes: Positive: Normal Thyroid: Positive: Normal Pulmonary: Positive: Normal Cardiology: Positive: Normal Gastroenterology: Positive: Abdominal Pain, Nausea, Vomiting Endocrinology: Positive: Normal Neurology: Positive: Normal Psychiatry: Positive: Normal Objective Active Medications: Al Hydrox/Mg Hydrox/Simethicone (Maalox Plus*) 30 ml PO Q6H PRN PRN Reason: HEARTBURN Amlodipine Besylate (Norvasc Tab*) 5 mg PO DAILY [facility] Hydromorphone HCl (Dilaudid Iv*) 1 mg IV SLOW PU Q2H PRN PRN Reason: PAIN Last Admin: 07/02/16 07:01 Dose: 1 mg Diphenhydramine HCl 25 mg/ (Sodium Chloride) 50.5 mls @ 101 mls/hr IVPB Q6H PRN PRN Reason: ITCHING Piperacillin Sod/Tazobactam Sod (Zosyn 3.375 Gm In Ns Premix*) 3.375 gm in 100 mls @ 200 mls/hr IVPB Q6H [facility] Last Admin: 07/02/16 07:33 Dose: 200 mls/hr Lactated Ringer's (Lactated Ringers 1000 Ml Bag*) 1,000 mls @ 0 mls/hr IV PER RATE PRN; Wide Open PRN Reason: IF U/O LESS THAN 150 ML/4 HRS Last Admin: 07/02/16 11:30 Dose: 999 mls/hr Potassium Chloride/Dextrose (D5w 1/2 Ns Kcl 20 Meq 1000 Ml*) 1,000 mls @ 125 mls/hr IV PER RATE [facility] Last Admin: 07/02/16 10:11 Dose: 125 mls/hr Lactated Ringer's (Lactated Ringers 1000 Ml Bag*) 1,000 mls @ 125 mls/hr IV PER RATE [facility] Ketorolac Tromethamine (Toradol Inj*) 30 mg IV Q6H [facility] Stop: 07/07/16 02:01 Last Admin: 07/02/16 10:11 Dose: 30 mg Nicotine (Nicotine Inhaler*) 10 mg INH Q2H PRN PRN Reason: CRAVINGS Last Admin: 06/30/16 20:35 Dose: 10 mg Ondansetron HCl (Zofran Inj*) 4 mg IV Q4H PRN PRN Reason: NAUSEA/VOMITING Last Admin: 07/02/16 06:59 Dose: 4 mg Vital Signs 07/01/16 07/01/16 07/01/16 15:03 15:28 16:14 Temperature 97.9 F Pulse Rate 91 89 Respiratory 20 16 Rate Blood Pressure 154/92 148/94 (mmHg) O2 Sat by Pulse 98 Oximetry 07/01/16 07/01/16 07/01/16 19:40 20:24 21:22 Temperature 98.5 F Pulse Rate 88 Respiratory 20 16 Rate Blood Pressure 160/98 (mmHg) O2 Sat by Pulse 99 99 Oximetry 07/02/16 07/02/16 07/02/16 07:01 07:24 11:38 Temperature 98.6 F 98.1 F Pulse Rate 105 92 Respiratory 18 16 16 Rate Blood Pressure 162/105 145/88 (mmHg) O2 Sat by Pulse 97 100 Oximetry 07/02/16 12:04 Temperature Pulse Rate Respiratory 16 Rate Blood Pressure (mmHg) O2 Sat by Pulse 100 Oximetry Oxygen Devices in Use Now: None Appearance: Young, AAM, laying in bed in NAD Eyes: No Scleral Icterus Ears/Nose/Mouth/Throat: Mucous Membranes Moist Neck: NL Appearance and Movements; NL JVP Respiratory: Symmetrical Chest Expansion and Respiratory Effort, Clear to Auscultation Cardiovascular: NL Sounds; No Murmurs; No JVD, RRR Abdominal: - - Dressing in place over midline incision, appears c/d/i, ostomy in place along with ANA drain, soft, BS hyperactive, non-tender Lymphatic: No Cervical Adenopathy Extremities: No Edema Skin: No Rash or Ulcers Neurological: Alert and Oriented x 3 Result Diagrams: 07/02/16 06:31 07/02/16 06:31 Additional Lab and Data: Assessment/Plan - Billing 35 yo M with diverticulitis and abscess s/p ex-lap, abscess drainage and diverting colostomy found to have elevated BPs. Patient may have underlying HTN (has FH) although pressures may be exacerbated by the current situation (surgery, IVF). For now will start patient on a low dose of Amlodipine and will write for prn Labetalol for SBP > 180. Will continue to follow and see how he settles out over the next few days. Thank you for this consult.
--- NOTE | 2016-07-02 14:43 | PN ---
Progress Note - Progress Note SOAP: Subjective: Bloated and belching. Emesis last night was coffee ground. Discussed I/R/B/A of NGT. He would like me to try to place it. Objective: Vital Signs Temp 98.1 F 07/02/16 11:38 Pulse 92 07/02/16 11:38 Resp 16 07/02/16 12:04 BP 145/88 07/02/16 11:38 Pulse Ox 100 07/02/16 12:04 Intake & Output 07/01/16 07/02/16 07/02/16 18:59 06:59 18:59 Intake Total 1422 3222 Output Total 365 790 135 Balance 1057 2432 -135 Intake: IV Fluids 1322 2875 LR 1302 2856 NS 20 19 IVPB 100 107 Zosyn 100 107 Oral 240 Output: ANA #1 15 15 Pisano 350 525 135 Emesis 250 NAD sitting in chair. NGT placed with 2% lidocaine jelly/viscous. Position confirmed by auscultation. Secured at 58cm. Initially blood and coffee ground effluent changed to bilous. 600ml returned immediately. Laboratory Results - last 24 hr 07/02/16 07/02/16 06:31 06:31 WBC 10.7 RBC 3.45 L Hgb 11.0 L Hct 33 L MCV 94 MCH 32 H MCHC 34 RDW 13 Plt Count 360 MPV 8 Neut % (Auto) 81.2 Lymph % (Auto) 6.4 L [place] % (Auto) 12.1 H Eos % (Auto) 0.2 Baso % (Auto) 0.1 Absolute Neuts (auto) 8.7 H Absolute Lymphs (auto) 0.7 L Absolute Monos (auto) 1.3 H Absolute Eos (auto) 0 Absolute Basos (auto) 0 Absolute Nucleated RBC 0 Nucleated RBC % 0 Sodium 135 Potassium 3.5 Chloride 98 L Carbon Dioxide 29 Anion Gap 8 BUN 7 Creatinine 0.62 L Est GFR ( Amer) 188.8 Est GFR (Non-Af Amer) 146.8 BUN/Creatinine Ratio 11.3 Glucose 114 H Calcium 9.1 Microbiology 06/30/16 15:36 Anaerobic Culture - Preliminary Misc Source (See Comment) - Abscess Skin and Soft Tissue MRSA/MSSA (PCR - Final Mrsa Negative S.aureus Negative Gram Stain - Final Wound Culture - Preliminary Streptococcus Anginosus Escherichia Coli Assessment: Postop Ileus, s/p laparotomy/colostomy/abscess drainage. POD#2. Oliguria due to hypovolemia likely due to 3rd spacing from surgery/ileus. Plan: Cont NGT to LWS. Follow u/o, IVF bolus prn. Cont IV Zosyn, check micro.
[2016-07-03] MEDS: Piperac/Tazob 3.375 gm in NS* 3.375 GM/100 ML BAG IVPB SCH ×4 (00:27→18:35)
[2016-07-03] MEDS: Ketorolac INJ* 30 MG/ML 1 ML VIAL IV SCH ×4 (02:23→20:00)
[2016-07-03] MEDS: HYDROmorphone* 1 MG/ML 1 ML SYR IV SLOW PU PRN (05:34)
--- NOTE | 2016-07-03 09:27 | PN ---
Progress Note - Progress Note Note: Surgery Progress: S: POD #3. Feels better since NG placed. Overall, pain well-controlled. Feeling a bit hungry. Just had some gas per ostomy. Ambulating. O: Vital Signs - 8 hr 07/03/16 07/03/16 07/03/16 03:09 05:34 06:34 Temperature 98.9 F Pulse Rate 88 Respiratory 16 18 16 Rate Blood Pressure 144/88 (mmHg) O2 Sat by Pulse 97 Oximetry 07/03/16 07:27 Temperature 98.0 F Pulse Rate 72 Respiratory 16 Rate Blood Pressure 133/82 (mmHg) O2 Sat by Pulse 96 Oximetry Intake and Output Last 24 Hours 07/01/16 07/02/16 07/03/16 07/04/16 06:59 06:59 06:59 06:59 Intake Total 4644 6056 Output Total 1155 3228 Balance 3489 2828 Weight Intake: IV Fluids 4197 6056 D5 1/2 NS c 20KCl 2651 LR 4158 3200 NS 39 Zosyn 205 IVPB 207 Zosyn 207 Oral 240 0 Output: NG Tube Drainage Amount 2049 ANA #1 30 18 Pisano 875 1110 Colostomy 50 Emesis 250 Other: Estimated Blood Loss Comment Heart: reg Lungs: clear; sl decreased at bases Abd: +BS; distended, tympanitic; soft; mild incisional tenderness; midline incision w/ moderate serosang drainage; ANA: same; ostomy: edema, pink; small amt clear liquid in bag. Pkg changed. A: s/p ex lap, drainage abscess, end-colostomy; ileus P: cont NG, IVF, abx
[2016-07-03] MEDS: amLODIPine TAB* 5 MG PO SCH (09:32)
--- NOTE | 2016-07-03 11:24 | PN ---
Subjective Date of Service: 07/03/16 Interval History: Pt examined today at the bedside. States that he is feeling better. States that his abd pain is controlled. Denies chest pain, denies sob. States that he is passing flatus through his bag. ROS-denies fever, denies chills, denies sob, denies chest pain, denies nausea, denies vomiting, admits to abd pain but improved, denies lightheadedness, denies loc, review of 11 systems completed all others negative, Family History: Unchanged from Admission - As per initial H&P Social History: Unchanged from Admission - As per initial H&P Past Medical History: Unchanged from Admission - As per initial H&P Objective Active Medications: Al Hydrox/Mg Hydrox/Simethicone (Maalox Plus*) 30 ml PO Q6H PRN PRN Reason: HEARTBURN Amlodipine Besylate (Norvasc Tab*) 5 mg PO DAILY [facility] Last Admin: 07/03/16 09:32 Dose: 5 mg Hydromorphone HCl (Dilaudid Iv*) 1 mg IV SLOW PU Q2H PRN PRN Reason: PAIN Last Admin: 07/03/16 05:34 Dose: 1 mg Diphenhydramine HCl 25 mg/ (Sodium Chloride) 50.5 mls @ 101 mls/hr IVPB Q6H PRN PRN Reason: ITCHING Piperacillin Sod/Tazobactam Sod (Zosyn 3.375 Gm In Ns Premix*) 3.375 gm in 100 mls @ 200 mls/hr IVPB Q6H [facility] Last Admin: 07/03/16 06:23 Dose: 200 mls/hr Lactated Ringer's (Lactated Ringers 1000 Ml Bag*) 1,000 mls @ 0 mls/hr IV PER RATE PRN; Wide Open PRN Reason: IF U/O LESS THAN 150 ML/4 HRS Last Admin: 07/02/16 19:17 Dose: 1,000 mls/hr Potassium Chloride/Dextrose (D5w 1/2 Ns Kcl 20 Meq 1000 Ml*) 1,000 mls @ 125 mls/hr IV PER RATE [facility] Last Admin: 07/02/16 20:18 Dose: 125 mls/hr Lactated Ringer's (Lactated Ringers 1000 Ml Bag*) 1,000 mls @ 125 mls/hr IV PER RATE [facility] Ketorolac Tromethamine (Toradol Inj*) 30 mg IV Q6H [facility] Stop: 07/07/16 02:01 Last Admin: 07/03/16 09:32 Dose: 30 mg Labetalol HCl (Trandate Iv*) 10 mg IV PUSH Q6H PRN PRN Reason: SBP > 180 Nicotine (Nicotine Inhaler*) 10 mg INH Q2H PRN PRN Reason: CRAVINGS Last Admin: 06/30/16 20:35 Dose: 10 mg Ondansetron HCl (Zofran Inj*) 4 mg IV Q4H PRN PRN Reason: NAUSEA/VOMITING Last Admin: 07/02/16 06:59 Dose: 4 mg Vital Signs 07/02/16 07/02/16 07/02/16 11:38 12:04 15:04 Temperature 98.1 F 97.9 F Pulse Rate 92 87 Respiratory 16 16 16 Rate Blood Pressure 145/88 150/101 (mmHg) O2 Sat by Pulse 100 100 100 Oximetry 07/02/16 07/02/16 07/02/16 19:25 20:00 23:47 Temperature 98.9 F 97.9 F Pulse Rate 84 86 Respiratory 16 16 16 Rate Blood Pressure 158/98 151/94 (mmHg) O2 Sat by Pulse 100 100 Oximetry 07/03/16 07/03/16 07/03/16 03:09 05:34 06:34 Temperature 98.9 F Pulse Rate 88 Respiratory 16 18 16 Rate Blood Pressure 144/88 (mmHg) O2 Sat by Pulse 97 Oximetry 07/03/16 07:27 Temperature 98.0 F Pulse Rate 72 Respiratory 16 Rate Blood Pressure 133/82 (mmHg) O2 Sat by Pulse 96 Oximetry Oxygen Devices in Use Now: None Appearance: 35 y/o male patient NAD, sitting in chair, Eyes: No Scleral Icterus, PERRLA Ears/Nose/Mouth/Throat: NL Teeth, Lips, Gums Neck: NL Appearance and Movements; NL JVP Respiratory: Symmetrical Chest Expansion and Respiratory Effort Cardiovascular: NL Sounds; No Murmurs; No JVD Abdominal: - - NG tube draining bilous fluids, abd mildly distended, tender at incision, colostomy pink no drainage noted Extremities: No Edema Skin: No Rash or Ulcers, - - incision to midline abd CDI Neurological: Alert and Oriented x 3 Lines/Tubes/Other Access: Clean, Dry and Intact Naso-enteral Tube, Clean, Dry and Intact Peripheral IV Result Diagrams: 07/02/16 06:31 07/02/16 06:31 Additional Lab and Data: Assess/Plan/Problems-Billing 35 yo M with diverticulitis and abscess s/p ex-lap, abscess drainage and diverting colostomy found to have elevated BPs. . - Patient Problems (1) Diverticulitis large intestine w/o perforation or abscess w/bleeding Current Visit: Yes Status: Acute Priority: High Comment: Per surgery s/p ex lap with colostomy, (2) HTN (hypertension) Current Visit: Yes Status: Acute Priority: High Comment: Bp better controlled, continue norvasc, prn labetalol available but not given yesterday (3) FEN Current Visit: Yes Status: Acute Priority: High Comment: Per surgery (4) DVT prophylaxis Current Visit: Yes Status: Acute Priority: High Comment: Per loren (5) Full code status Current Visit: Yes Status: Acute Priority: High Status and Disposition: Per surgery, continue norvasc, will need PCP at d/c to follow outpatient will need norvasc at d/c 5mg daily, will follow
[2016-07-03] MEDS: D5W 1/2 NS KCl 20 Meq 1000 ML* 1,000 ML IV SCH ×2 (12:47→21:56)
[2016-07-04] MEDS: Piperac/Tazob 3.375 gm in NS* 3.375 GM/100 ML BAG IVPB SCH ×4 (00:15→18:24)
[2016-07-04] MEDS: HYDROmorphone* 1 MG/ML 1 ML SYR IV SLOW PU PRN (00:17)
[2016-07-04] MEDS: Ketorolac INJ* 30 MG/ML 1 ML VIAL IV SCH ×4 (02:37→20:19)
[2016-07-04] MEDS: D5W 1/2 NS KCl 20 Meq 1000 ML* 1,000 ML IV SCH ×2 (06:14→19:23)
[2016-07-04 08:03] LABS: Hematocrit 32 % (42-52); Hemoglobin 10.6 g/dl (14.0-18.0); Mean Corpuscular HGB Conc 33 g/dl (31-36); Mean Corpuscular Hemoglobin 32 pg (27-31); Mean Corpuscular Volume 95 fL (80-94); Mean Platelet Volume 8 um3 (7.4-10.4); Red Blood Count 3.36 10^6/ul (4.0-5.4); Red Cell Distribution Width 13 % (10.5-15)
[2016-07-04 08:15] LABS: BUN/Creatinine Ratio 4.1 (8-20); Calcium 8.6 mg/dL (8.6-10.3); EGFR African American 156.3 (>60); EGFR Non-African American 121.6 (>60); Potassium 3.4 mmol/L (3.5-5.0)
[2016-07-04] MEDS: amLODIPine TAB* 5 MG PO SCH ×2 (08:39→20:19)
--- NOTE | 2016-07-04 09:32 | PN ---
Progress Note - Progress Note Note: Surgery Progress: S: POD #4. No c/o pain, N/V. Passing flatus per colostomy. Ambulating. Voiding well. O: Vital Signs - 8 hr 07/04/16 07/04/16 03:27 07:45 Temperature 97.8 F 97.5 F Pulse Rate 73 73 Respiratory 16 20 Rate Blood Pressure 143/84 133/83 (mmHg) O2 Sat by Pulse 95 99 Oximetry Intake and Output Last 24 Hours 07/02/16 07/03/16 07/04/16 07/05/16 06:59 06:59 06:59 06:59 Intake Total 4644 6056 3563 Output Total 1155 3228 3035 Balance 3489 2828 528 Intake: IV Fluids 4197 6056 3238 D5 1/2 NS c 20KCl 2651 2918 LR 4158 3200 NS 39 Zosyn 205 320 IVPB 207 105 Zosyn 207 105 Oral 240 0 220 Output: NG Tube Drainage Amount 2050 1075 ANA #1 30 18 15 Urine 1700 Pisano 875 1110 225 Colostomy 50 20 Emesis 250 Heart:reg Lungs: clear Abd: audible flatus to bag; still moderate distension/tympany; soft, no sig tenderness; drgs dry, intact (I did not change packing); ANA light serosang; NG: dark (200 cc/last 7 hrs) Labs: Laboratory Tests 07/04/16 07/04/16 07:31 07:31 WBC 6.0 Hgb 10.6 L Potassium 3.4 L A/P: s/p ex lap, drainage diverticular abscess, end-colostomy; doing well overall; could probably d/c NG, start sips clears; hypokalemia (will give one run KCl); will decrease IVF; cont wound care
[2016-07-04] MEDS ORDERED: KCL 20 MEQ/100 ML IVPREMIX* 20 MEQ/100 ML BAG IV ONE (10:00)
--- NOTE | 2016-07-04 11:51 | SURGPN ---
Subjective - Introduction -: [Doing well, ambulatory. Denies any complaints. - Medications -: Active Medications Generic Name Dose Route Start Last Admin Trade Name Freq PRN Reason Stop Dose Admin Al Hydrox/Mg Hydrox/Simethicone 30 ml 06/30/16 17:33 Maalox Plus* PO Q6H PRN HEARTBURN Amlodipine Besylate 5 mg 07/02/16 13:00 07/04/16 08:39 Norvasc Tab* PO 5 mg DAILY SCOTTY Administration Hydromorphone HCl 1 mg 06/30/16 17:31 07/04/16 00:17 Dilaudid Iv* IV SLOW PU 1 mg Q2H PRN Administration PAIN Diphenhydramine HCl 25 mg/ 50.5 mls @ 101 mls/hr 06/30/16 17:32 Sodium Chloride IVPB Q6H PRN ITCHING Piperacillin Sod/Tazobactam Sod 3.375 gm in 100 mls @ 200 mls/hr 07/01/16 00: 30 07/04/16 06:14 Zosyn 3.375 Gm In Ns Premix* IVPB 200 mls/hr Q6H SCOTTY Administration Lactated Ringer's 1,000 mls @ 0 mls/hr 07/01/16 21:46 07/02/16 19:17 Lactated Ringers 1000 Ml Bag* IV 1,000 mls/hr PER RATE PRN Administration IF U/O LESS THAN 150 ML/4 HRS Wide Open Potassium Chloride/Dextrose 1,000 mls @ 75 mls/hr 07/04/16 10:00 D5w 1/2 Ns Kcl 20 Meq 1000 Ml* IV PER RATE SCOTTY Potassium Chloride 20 meq in 100 mls @ 50 mls/hr 07/04/16 10:00 07/04/16 10: 40 Potassium Chloride 20 Meq/100 Ml Ivpremix* IV 07/04/16 11:59 50 mls/hr ONCE ONE Administration Ketorolac Tromethamine 30 mg 07/02/16 08:00 07/04/16 08:39 Toradol Inj* IV 07/07/16 02:01 30 mg Q6H SCOTTY Administration Labetalol HCl 10 mg 07/02/16 13:33 Trandate Iv* IV PUSH Q6H PRN SBP > 180 Nicotine 10 mg 06/30/16 20:08 06/30/16 20:35 Nicotine Inhaler* INH 10 mg Q2H PRN Administration CRAVINGS Ondansetron HCl 4 mg 06/30/16 17:27 07/02/16 06:59 Zofran Inj* IV 4 mg Q4H PRN Administration NAUSEA/VOMITING Objective - Objective -: Awake and alert, comfortable in bed, in NAD. - Intake and Output -: Intake & Output 07/02/16 07/03/16 07/04/16 07/05/16 06:59 06:59 06:59 06:59 Intake Total 4644 6056 3563 420 Output Total 1155 3228 3035 800 Balance 3489 2828 528 -380 Intake: IV Fluids 4197 6056 3238 D5 1/2 NS c 20KCl 2651 2918 LR 4158 3200 NS 39 Zosyn 205 320 IVPB 207 105 420 D5 1/2 NS c 20KCl 420 Zosyn 207 105 Oral 240 0 220 Output: NG Tube Drainage Amount 2050 1075 ANA #1 30 18 15 Urine 1700 800 [place] 875 1110 225 Colostomy 50 20 Emesis 250 ADLs: Meal Record Start: 06/30/16 17: 36 Freq: Status: Active Created 06/30/16 17:36 System (Rec: 06/30/16 17:36 System SSU-C12) Document 07/01/16 10:00 [id number] (Rec: 07/01/16 14:04 [id number] SSU-C05) Document 07/01/16 14:00 [id number] (Rec: 07/01/16 14:29 [id number] SSU-C05) Document 07/02/16 09:52 [id number] (Rec: 07/02/16 09:52 [id number] SSU-C19) Document 07/02/16 13:54 [id number] (Rec: 07/02/16 13:54 [id number] SSU-C19) Document 07/02/16 22:00 [id number] (Rec: 07/02/16 22:00 [id number] SSU-C19) Document 07/03/16 10:02 [id number] (Rec: 07/03/16 10:02 [id number] SSU-C05) Document 07/03/16 14:23 [id number] (Rec: 07/03/16 14:24 [id number] SSU-C05) Intake and Output Start: 06/30/16 17: 36 Freq: DAILY@0600,1400,2200 Status: Active Created 06/30/16 17:36 System (Rec: 06/30/16 17:36 System SSU-C12) Document 06/30/16 18:42 [id number] (Rec: 06/30/16 18:42 [id number] SSU-M08) Document 06/30/16 19:50 [id number] (Rec: 06/30/16 20:09 [id number] SSU-M08) Document 06/30/16 21:05 [id number] (Rec: 06/30/16 21:05 [id number] SSU-M08) Document 06/30/16 22:00 [id number] (Rec: 06/30/16 22:47 [id number] SSU-C19) Document 07/01/16 01:00 [id number] (Rec: 07/01/16 01:11 [id number] SSU-C49) Document 07/01/16 06:00 [id number] (Rec: 07/01/16 06:17 [id number] SSU-C02) Document 07/01/16 14:00 [id number] (Rec: 07/01/16 14:29 [id number] SSU-C05) Document 07/01/16 21:15 [id number] (Rec: 07/01/16 23:42 [id number] SSU-M03) Document 07/01/16 22:12 [id number] (Rec: 07/01/16 22:13 [id number] SSU-C05) Document 07/01/16 22:50 [id number] (Rec: 07/01/16 22:54 [id number] SSU-M03) Document 07/02/16 02:06 [id number] (Rec: 07/02/16 02:07 [id number] SSU-C49) Document 07/02/16 06:00 [id number] (Rec: 07/02/16 06:16 [id number] SSU-C04) Document 07/02/16 14:00 [id number] (Rec: 07/02/16 14:41 [id number] SSU-C19) Document 07/02/16 15:10 [id number] (Rec: 07/02/16 17:33 [id number] SSU-C19) Document 07/02/16 19:11 [id number] (Rec: 07/02/16 19:11 [id number] SSU-C19) Document 07/02/16 22:48 [id number] (Rec: 07/02/16 22:50 [id number] SSU-C19) Document 07/03/16 00:37 [id number] (Rec: 07/03/16 00:38 [id number] SSU-C09) Document 07/03/16 03:06 [id number] (Rec: 07/03/16 03:06 [id number] SSU-C12) Document 07/03/16 05:55 [id number] (Rec: 07/03/16 05:55 [id number] SSU-C09) Document 07/03/16 06:56 [id number] (Rec: 07/03/16 06:57 [id number] SSU-C12) Document 07/03/16 10:35 [id number] (Rec: 07/03/16 10:36 [id number] SSU-C05) Document 07/03/16 15:00 [id number] (Rec: 07/03/16 15:02 [id number] SSU-C05) Document 07/03/16 17:43 [id number] (Rec: 07/03/16 17:43 [id number] SSU-C02) Document 07/03/16 23:13 [id number] (Rec: 07/03/16 23:16 [id number] SSU-C05) Document 07/04/16 01:31 [id number] (Rec: 07/04/16 01:31 [id number] SSU-C05) Document 07/04/16 03:46 [id number] (Rec: 07/04/16 03:46 [id number] SSU-C05) Document 07/04/16 06:00 [id number] (Rec: 07/04/16 06:18 [id number] ICU-M18) Surgical Physical Exam - Comments -: Dressing removed. Midline incisions intact with no discharge or erythema noted. Packing gauze changed and new dressing was applied. Pt tolerated dressing change well. Assessment and Plan - Assessment -: A 35 y/o male, s/p exploratory laparotomy with diverting colostomy, stable. - Plan Surgical Plan of Care: Advance Diet, Increase Activity, Change Dressing as Needed - Next dressing change on Thursday 07/06 or prn
--- NOTE | 2016-07-04 17:01 | PN ---
Subjective Date of Service: 07/04/16 Interval History: Feels well. No pain. He reports some colostomy output. No new c/o. Family History: Unchanged from Admission - As per initial H&P Social History: Unchanged from Admission - As per initial H&P Past Medical History: Unchanged from Admission - As per initial H&P Objective Active Medications: Al Hydrox/Mg Hydrox/Simethicone (Maalox Plus*) 30 ml PO Q6H PRN PRN Reason: HEARTBURN Amlodipine Besylate (Norvasc Tab*) 5 mg PO BID [facility] Hydromorphone HCl (Dilaudid Iv*) 1 mg IV SLOW PU Q2H PRN PRN Reason: PAIN Last Admin: 07/04/16 00:17 Dose: 1 mg Diphenhydramine HCl 25 mg/ (Sodium Chloride) 50.5 mls @ 101 mls/hr IVPB Q6H PRN PRN Reason: ITCHING Piperacillin Sod/Tazobactam Sod (Zosyn 3.375 Gm In Ns Premix*) 3.375 gm in 100 mls @ 200 mls/hr IVPB Q6H [facility] Last Admin: 07/04/16 12:45 Dose: 200 mls/hr Lactated Ringer's (Lactated Ringers 1000 Ml Bag*) 1,000 mls @ 0 mls/hr IV PER RATE PRN; Wide Open PRN Reason: IF U/O LESS THAN 150 ML/4 HRS Last Admin: 07/02/16 19:17 Dose: 1,000 mls/hr Potassium Chloride/Dextrose (D5w 1/2 Ns Kcl 20 Meq 1000 Ml*) 1,000 mls @ 75 mls /hr IV PER RATE [facility] Ketorolac Tromethamine (Toradol Inj*) 30 mg IV Q6H [facility] Stop: 07/07/16 02:01 Last Admin: 07/04/16 14:04 Dose: 30 mg Labetalol HCl (Trandate Iv*) 10 mg IV PUSH Q6H PRN PRN Reason: SBP > 180 Nicotine (Nicotine Inhaler*) 10 mg INH Q2H PRN PRN Reason: CRAVINGS Last Admin: 06/30/16 20:35 Dose: 10 mg Ondansetron HCl (Zofran Inj*) 4 mg IV Q4H PRN PRN Reason: NAUSEA/VOMITING Last Admin: 07/02/16 06:59 Dose: 4 mg Vital Signs 07/03/16 07/03/16 07/03/16 19:46 20:00 23:08 Temperature 98.3 F 97.9 F Pulse Rate 81 75 Respiratory 16 16 16 Rate Blood Pressure 147/94 133/87 (mmHg) O2 Sat by Pulse 99 100 Oximetry 07/04/16 07/04/16 07/04/16 00:17 01:04 03:27 Temperature 97.8 F Pulse Rate 73 Respiratory 16 16 16 Rate Blood Pressure 143/84 (mmHg) O2 Sat by Pulse 95 Oximetry 07/04/16 07/04/16 07/04/16 07:45 08:00 12:13 Temperature 97.5 F 97.8 F Pulse Rate 73 72 Respiratory 20 20 16 Rate Blood Pressure 133/83 148/99 (mmHg) O2 Sat by Pulse 99 99 98 Oximetry 07/04/16 07/04/16 15:38 16:00 Temperature 98.1 F Pulse Rate 81 Respiratory 16 Rate Blood Pressure 146/97 (mmHg) O2 Sat by Pulse 99 98 Oximetry Oxygen Devices in Use Now: None Appearance: Alert, sitting on the edge of his bed. In good spirits. Looks comfortable. Eyes: No Scleral Icterus Ears/Nose/Mouth/Throat: Clear Oropharnyx, Mucous Membranes Moist Neck: NL Appearance and Movements; NL JVP, No Thyroid Enlargement, Masses Respiratory: Symmetrical Chest Expansion and Respiratory Effort, Clear to Auscultation, Clear to Percussion Cardiovascular: NL Sounds; No Murmurs; No JVD, RRR, No Edema, - Extremities: No Edema, No Clubbing, Cyanosis, - Skin: No Rash or Ulcers, No Nodules or Sclerosis, - Neurological: Alert and Oriented x 3, NL Sensation Result Diagrams: 07/04/16 07:31 07/04/16 07:31 Additional Lab and Data: Assess/Plan/Problems-Billing 35 yo M with diverticulitis and abscess s/p ex-lap, abscess drainage and diverting colostomy found to have elevated BPs. . - Patient Problems (1) Diverticulitis of both large and small intestine with abscess with bleeding Current Visit: Yes Status: Acute Code(s): K57.41 - DVTRCLI OF BOTH SMALL AND LG INT W PERF AND ABSCESS W BLEED SNOMED Code(s): 329671698 Comment: Mangement per surgery. Doing well. Continue pip/jena. (2) HTN (hypertension) Current Visit: Yes Status: Acute Priority: High Code(s): I10 - ESSENTIAL ( PRIMARY) HYPERTENSION SNOMED Code(s): 25227522 Comment: Increase norvasc. (3) Tobacco abuse Current Visit: Yes Status: Acute Code(s): Z72.0 - TOBACCO USE SNOMED Code( s): 454935064 Comment: Pt advised to quit smoking and avoid second hand smoke. Status and Disposition: Per surgery, continue norvasc, will need PCP at d/c to follow outpatient will need norvasc at d/c 5mg daily, will follow
[2016-07-05] MEDS: Piperac/Tazob 3.375 gm in NS* 3.375 GM/100 ML BAG IVPB SCH ×5 (00:40→23:56)
[2016-07-05] MEDS: Ketorolac INJ* 30 MG/ML 1 ML VIAL IV SCH ×2 (02:13→07:46)
[2016-07-05] MEDS: amLODIPine TAB* 5 MG PO SCH (07:46)
[2016-07-05] MEDS ORDERED: oxyCODONE/Acetamin 5/325 MG* TAB PO PRN (09:49)
[2016-07-05] MEDS ORDERED: Ibuprofen TAB* 600 MG PO PRN (09:49)
--- NOTE | 2016-07-05 10:35 | SURGPN ---
Subjective - Introduction -: Doing very well, no complaints. Ambulatory down sher all yesterday. No N/V, fever or chills. Tolerating clear liquids, feels hungry, stoma bag filled twice yesterday. - Medications -: Active Medications Generic Name Dose Route Start Last Admin Trade Name Freq PRN Reason Stop Dose Admin Al Hydrox/Mg Hydrox/Simethicone 30 ml 06/30/16 17:33 Maalox Plus* PO Q6H PRN HEARTBURN Amlodipine Besylate 5 mg 07/04/16 21:00 07/05/16 07:46 Norvasc Tab* PO 5 mg BID SCOTTY Administration Hydromorphone HCl 1 mg 06/30/16 17:31 07/04/16 00:17 Dilaudid Iv* IV SLOW PU 1 mg Q2H PRN Administration PAIN Diphenhydramine HCl 25 mg/ 50.5 mls @ 101 mls/hr 06/30/16 17:32 Sodium Chloride IVPB Q6H PRN ITCHING Piperacillin Sod/Tazobactam Sod 3.375 gm in 100 mls @ 200 mls/hr 07/01/16 00: 30 07/05/16 05:45 Zosyn 3.375 Gm In Ns Premix* IVPB 200 mls/hr Q6H SCOTTY Administration Lactated Ringer's 1,000 mls @ 0 mls/hr 07/01/16 21:46 07/02/16 19:17 Lactated Ringers 1000 Ml Bag* IV 1,000 mls/hr PER RATE PRN Administration IF U/O LESS THAN 150 ML/4 HRS Wide Open Potassium Chloride/Dextrose 1,000 mls @ 75 mls/hr 07/04/16 10:00 07/04/16 19: 23 D5w 1/2 Ns Kcl 20 Meq 1000 Ml* IV 75 mls/hr PER RATE SCOTTY Administration Ibuprofen 600 mg 07/05/16 09:49 Motrin Tab* PO Q6H PRN PAIN Labetalol HCl 10 mg 07/02/16 13:33 Trandate Iv* IV PUSH Q6H PRN SBP > 180 Nicotine 10 mg 06/30/16 20:08 06/30/16 20:35 Nicotine Inhaler* INH 10 mg Q2H PRN Administration CRAVINGS Ondansetron HCl 4 mg 06/30/16 17:27 07/02/16 06:59 Zofran Inj* IV 4 mg Q4H PRN Administration NAUSEA/VOMITING Oxycodone/Acetaminophen 1 tab 07/05/16 09:49 Percocet 5/325 Tab* PO Q4H PRN PAIN Objective - Objective -: Awake and alert, comfortable on chair, in NAD. - Intake and Output -: Intake & Output 07/03/16 07/04/16 07/05/16 07/06/16 06:59 06:59 06:59 06:59 Intake Total 6056 3563 2705 Output Total 3228 3035 3405 600 Balance 2828 528 -700 -600 Intake: IV Fluids 6056 3238 2035 D5 1/2 NS c 20KCl 2651 2918 1723 LR 3200 Zosyn 205 320 312 IVPB 105 420 D5 1/2 NS c 20KCl 420 Zosyn 105 Oral 0 220 250 Output: NG Tube Drainage Amount 0 1075 150 ANA #1 18 15 55 Urine 1700 3200 600 [place] 1110 225 Colostomy 50 20 Surgical Physical Exam - Comments -: Vitals reviewed, afebrile. Abdomen: soft, non-tender and non-distended. Dressing clean and dry. Stoma viable with output liquid brown stools. J-vac with gtts clear output. Ext.: No edema. Assessment and Plan - Assessment -: A 35 y/o male, s/p exploratory laparotomy and diverting colostomy, doing well. - Plan Surgical Plan of Care: Advance Diet Additional Comments: He continues to improve with bowel function, will advance diet. If tolerated regular diet this evening, will discuss possible discharge to home tomorrow.
[2016-07-05] MEDS: D5W 1/2 NS KCl 20 Meq 1000 ML* 1,000 ML IV SCH (11:39)
--- NOTE | 2016-07-05 19:10 | PN ---
Subjective Date of Service: 07/05/16 Interval History: Doing well. No pain. Ate chicken salad today. Pt confident he can take care of his colostomy at home. No new c/o. Family History: Unchanged from Admission - As per initial H&P Social History: Unchanged from Admission - As per initial H&P Past Medical History: Unchanged from Admission - As per initial H&P Objective Active Medications: Al Hydrox/Mg Hydrox/Simethicone (Maalox Plus*) 30 ml PO Q6H PRN PRN Reason: HEARTBURN Amlodipine Besylate (Norvasc Tab*) 10 mg PO DAILY SCOTTY Amlodipine Besylate (Norvasc Tab*) 5 mg PO BEDTIME SCOTTY Hydromorphone HCl (Dilaudid Iv*) 1 mg IV SLOW PU Q2H PRN PRN Reason: PAIN Last Admin: 07/04/16 00:17 Dose: 1 mg Diphenhydramine HCl 25 mg/ (Sodium Chloride) 50.5 mls @ 101 mls/hr IVPB Q6H PRN PRN Reason: ITCHING Piperacillin Sod/Tazobactam Sod (Zosyn 3.375 Gm In Ns Premix*) 3.375 gm in 100 mls @ 200 mls/hr IVPB Q6H SCOTTY Last Admin: 07/05/16 18:14 Dose: 200 mls/hr Lactated Ringer's (Lactated Ringers 1000 Ml Bag*) 1,000 mls @ 0 mls/hr IV PER RATE PRN; Wide Open PRN Reason: IF U/O LESS THAN 150 ML/4 HRS Last Admin: 07/02/16 19:17 Dose: 1,000 mls/hr Potassium Chloride/Dextrose (D5w 1/2 Ns Kcl 20 Meq 1000 Ml*) 1,000 mls @ 75 mls /hr IV PER RATE SCOTTY Last Admin: 07/05/16 11:39 Dose: 75 mls/hr Ibuprofen (Motrin Tab*) 600 mg PO Q6H PRN PRN Reason: PAIN Labetalol HCl (Trandate Iv*) 10 mg IV PUSH Q6H PRN PRN Reason: SBP > 180 Nicotine (Nicotine Inhaler*) 10 mg INH Q2H PRN PRN Reason: CRAVINGS Last Admin: 06/30/16 20:35 Dose: 10 mg Ondansetron HCl (Zofran Inj*) 4 mg IV Q4H PRN PRN Reason: NAUSEA/VOMITING Last Admin: 07/02/16 06:59 Dose: 4 mg Oxycodone/Acetaminophen (Percocet 5/325 Tab*) 1 tab PO Q4H PRN PRN Reason: PAIN Vital Signs 07/04/16 07/04/16 07/04/16 19:29 19:38 23:23 Temperature 98.2 F 98.2 F Pulse Rate 84 84 Respiratory 18 16 16 Rate Blood Pressure 145/98 144/98 (mmHg) O2 Sat by Pulse 100 100 Oximetry 07/05/16 07/05/16 07/05/16 03:27 07:32 08:00 Temperature 98.4 F 97.9 F Pulse Rate 86 80 Respiratory 16 18 18 Rate Blood Pressure 123/83 142/89 (mmHg) O2 Sat by Pulse 99 100 100 Oximetry 07/05/16 07/05/16 07/05/16 12:11 15:34 15:51 Temperature 98.3 F 98.8 F Pulse Rate 84 81 Respiratory 18 16 Rate Blood Pressure 135/87 137/90 (mmHg) O2 Sat by Pulse 100 100 100 Oximetry Oxygen Devices in Use Now: None Appearance: Alert, in a chair. In good spirits. Looks comfortable. Eyes: No Scleral Icterus Neck: NL Appearance and Movements; NL JVP, No Thyroid Enlargement, Masses Abdominal: NL Sounds; No Tenderness; No Distention, No Hepatosplenomegaly, - Neurological: Alert and Oriented x 3, NL Sensation Result Diagrams: 07/04/16 07:31 07/04/16 07:31 Additional Lab and Data: Assess/Plan/Problems-Billing 35 yo M with diverticulitis and abscess s/p ex-lap, abscess drainage and diverting colostomy found to have elevated BPs. . - Patient Problems (1) Diverticulitis of both large and small intestine with abscess with bleeding Current Visit: Yes Status: Acute Code(s): K57.41 - DVTRCLI OF BOTH SMALL AND LG INT W PERF AND ABSCESS W BLEED SNOMED Code(s): 051761170 Comment: Mangement per surgery. Doing well. Continue pip/jena, agree with oral antibiotic at home. (2) HTN (hypertension) Current Visit: Yes Status: Acute Priority: High Code(s): I10 - ESSENTIAL ( PRIMARY) HYPERTENSION SNOMED Code(s): 03738124 Comment: Change amlodipine to 10 mg AM, add metoprolol XL 25 mg daily 07/06. (3) Tobacco abuse Current Visit: Yes Status: Acute Code(s): Z72.0 - TOBACCO USE SNOMED Code( s): 747024980 Comment: Pt advised to quit smoking and avoid second hand smoke. Status and Disposition: Per surgery, continue norvasc, will need PCP at d/c to follow outpatient will need norvasc at d/c 5mg daily, will follow
[2016-07-05] MEDS ORDERED: amLODIPine TAB* 5 MG PO SCH (21:00)
[2016-07-06] MEDS: Piperac/Tazob 3.375 gm in NS* 3.375 GM/100 ML BAG IVPB SCH ×2 (06:44→12:55)
[2016-07-06 07:35] VITALS: BP 137/88
[2016-07-06] MEDS ORDERED: Metoprolol Succinate XL TAB* 25 MG PO SCH (09:00)
[2016-07-06] MEDS ORDERED: amLODIPine TAB* 5 MG PO SCH (09:00)
--- NOTE | 2016-07-06 12:08 | SURGPN ---
Subjective - Introduction -: Reports doing well, wants to go home. Tolerating regular diet. - Medications -: Active Medications Generic Name Dose Route Start Last Admin Trade Name Freq PRN Reason Stop Dose Admin Al Hydrox/Mg Hydrox/Simethicone 30 ml 06/30/16 17:33 Maalox Plus* PO Q6H PRN HEARTBURN Amlodipine Besylate 10 mg 07/06/16 09:00 07/06/16 09:02 Norvasc Tab* PO 10 mg DAILY SCOTTY Administration Hydromorphone HCl 1 mg 06/30/16 17:31 07/04/16 00:17 Dilaudid Iv* IV SLOW PU 1 mg Q2H PRN Administration PAIN Diphenhydramine HCl 25 mg/ 50.5 mls @ 101 mls/hr 06/30/16 17:32 Sodium Chloride IVPB Q6H PRN ITCHING Piperacillin Sod/Tazobactam Sod 3.375 gm in 100 mls @ 200 mls/hr 07/01/16 00: 30 07/06/16 06:44 Zosyn 3.375 Gm In Ns Premix* IVPB 200 mls/hr Q6H SCOTTY Administration Lactated Ringer's 1,000 mls @ 0 mls/hr 07/01/16 21:46 07/02/16 19:17 Lactated Ringers 1000 Ml Bag* IV 1,000 mls/hr PER RATE PRN Administration IF U/O LESS THAN 150 ML/4 HRS Wide Open Ibuprofen 600 mg 07/05/16 09:49 07/05/16 23:56 Motrin Tab* PO 600 mg Q6H PRN Administration PAIN Labetalol HCl 10 mg 07/02/16 13:33 Trandate Iv* IV PUSH Q6H PRN SBP > 180 Metoprolol Succinate 25 mg 07/06/16 09:00 07/06/16 09:02 Toprol Xl Tab* PO 25 mg DAILY SCOTTY Administration Nicotine 10 mg 06/30/16 20:08 06/30/16 20:35 Nicotine Inhaler* INH 10 mg Q2H PRN Administration CRAVINGS Ondansetron HCl 4 mg 06/30/16 17:27 07/02/16 06:59 Zofran Inj* IV 4 mg Q4H PRN Administration NAUSEA/VOMITING Oxycodone/Acetaminophen 1 tab 07/05/16 09:49 Percocet 5/325 Tab* PO Q4H PRN PAIN Objective - Objective -: Awake and alert, in NAD - Intake and Output -: Intake & Output 07/04/16 07/05/16 07/06/16 07/07/16 06:59 06:59 06:59 06:59 Intake Total 3563 2705 2826 50 Output Total 3035 3405 1961 325 Balance 528 -700 865 -275 Intake: IV Fluids 3238 2035 457 D5 1/2 NS c 20KCl 2918 1723 457 Zosyn 320 312 IVPB 780 452 1240 D5 1/2 NS c 20KCl 420 807 Zosyn 105 422 Oral 331 172 5145 50 Output: NG Tube Drainage Amount 1075 150 ANA #1 15 55 11 Urine 1700 3200 1900 125 [place] 225 Colostomy 20 50 200 Surgical Physical Exam - Comments -: Abdomen soft, NT/ND. Incision healing well, packing removed, dressing changed. Stoma viable with output. Drain with gtts serous output. Drain d/c'ed this AM. Assessment and Plan - Assessment -: POD#6, s/p exploratory laparotomy and diverting colostomy, doing very well, ready to d/c to home. - Plan Surgical Plan of Care: Remove Drains, Discontinue IV, Discharge Additional Comments: He has done very well post operatively. J-vac drain d/c'ed and dressing changed. He was evaluated by our stoma nurse, and he feels comfortable taking care of colostomy bag changes at home. Will be d/c'ed to home today on PO Augmentin for next 10 days and Percocet prn for pain. Also provided a script for his Amlodipine and Metoprolol for the next 30 days until seen by PCP as an outpatient. F/U in our office next Saturday. Dictated discharge summary is done.
--- NOTE | 2016-07-07 02:47 | DS ---
DISCHARGE SUMMARY: DATE OF ADMISSION: 06/30/16 DATE OF DISCHARGE: 07/06/16 ADMISSION DIAGNOSES: 1. Perforated sigmoid diverticulitis. 2. Hypertension. 3. Hypokalemia. DISCHARGE DIAGNOSES: 1. Perforated sigmoid diverticulitis. 2. Hypertension. 3. Hypokalemia. ADMITTING PHYSICIAN: Marcus Husain MD. CONSULTATION: Trung Dolan MD. PROCEDURES: Exploratory laparotomy with washout of sigmoid diverticular abscess and diverting colostomy on 06/30/16. HISTORY OF PRESENT ILLNESS: Mr. Granados is a pleasant 35-year-old gentleman who presented to the emergency room on the evening of 06/30/16 with complaints of worsening abdominal pain for the last few days. The patient had similar symptoms of left flank pain and sensation of mass associated with fever up to 102 degrees and chills. He reports eating corn a couple of days prior to his symptoms and was seen in the emergency room yesterday with left flank pain. He had urinalysis that showed hematuria and he was sent home assuming that he had history of nephrolithiasis. He continued to have pain on the left side and returned to the emergency room on the following day for further evaluation. His laboratory workup revealed a slightly elevated white count of 12,300, but his CT scan of the abdomen and pelvis was consistent with a large 7 x 6 x 10 cm abscess arising from the descending colon and surrounding inflammatory changes around the sigmoid colon as well. There was no evidence of any kidney stones. The patient was felt that he needed to go the operating room for a washout and possible sigmoid colectomy at this point. The patient had his first episode of sigmoid diverticulitis back in 2014 for which he was managed as an outpatient using antibiotics. This is his second episode of diverticulitis that was unfortunately complicated with perforation and abscess formation. After discussing the expectation of surgery and the hospital stay and the risks versus benefits of surgery, the patient had a long discussion with Dr. Husain and the decision was made for him to proceed with surgery. HOSPITAL COURSE: The patient was taken to the operating room in the evening hours of 06/30/16 where he underwent an exploratory laparotomy with drainage of retroperitoneal abscess and diverting colostomy by Dr. Husain. His surgery went quite smoothly with no immediate complications. After recovery, the patient was taken to the surgical floor. He had moderate amount of incisional discomfort, but he was able to ambulate on the first day postoperatively. The patient continued to improve and dressing was changed on the second day postoperatively with packing of the midline incision with some half-inch plain gauze. His colostomy was pink and viable, and initially there was no output for the first 3 days postoperatively, but on the fourth day, he started to have air, then brown stool output. He had laboratory workup on the following 4 days postoperatively that showed resolving of his leukocytosis from 12.3 to 6000 value on 07/04/16. His chemistry showed slight hypokalemia with value of 3.4 two days ago that was corrected using a run of KCl. The patient continued to improve clinically and he was ambulatory with no difficulty. His pain was under control and well-managed using oral pain medicine. He was seen by a stoma nurse for colostomy education and he felt very comfortable taking care of his colostomy at home. It was also noted that the patient had probable underlying hypertension prior to his surgery since his blood pressure initially postoperatively was running in the range of 160s/100s. Hospitalist consultation was done by Dr. Dolan and the patient was put on both calcium channel rito and beta-rito that seemed to help with his hypertension. On discharge morning, the patient continued to improve and he is doing very well. We will maintain him on p.o. antibiotics and pain medication, and will be seen in the office next week for incision recheck and followup. I will also maintain him on 5 mg of Norvasc as well as 25 mg of metoprolol to be taken at home until followed up by a primary care physician as an outpatient. DISCHARGE MEDICATIONS: His discharge medications include: 1. Percocet 5/325 mg 1 to 2 tabs q. 6 hours as needed for pain. 2. Norvasc 5 mg p.o. daily. 3. Metoprolol 25 mg p.o. daily. 4. Aspirin 325 mg p.o. daily. 5. Augmentin 875 mg p.o. b.i.d. for the next 10 days. PROBLEM LIST: Perforated descending colon diverticulitis with retroperitoneal abscess formation, status post exploratory laparotomy with washout of retroperitoneal abscess and diverting colostomy on 06/30/16. [facility] [place] [place] CC: [place] [id number]/[facility] #: [id number] [facility]
== END 2016-07-06 16:45 | disposition home or self-care (01) | DRG 330 ==
LOC: ED 10:59 → OR 13:42 → OBSVTOIN 17:28 → SSU 17:28
PROVIDERS: ADMIT Surgery; ATTEND Surgery
PROC: 0D1N0Z4 Bypass Sigmoid Colon to Cutaneous, Open Approach (ICD-10-PCS; 2016-06-30)
PROC: 0W9H0ZZ Drainage of Retroperitoneum, Open Approach (ICD-10-PCS; principal; 2016-06-30 15:00)
DX: K57.20 Diverticulitis of large intestine with perforation and abscess without bleeding (principal); K91.3 Postprocedural intestinal obstruction; R34 Anuria and oliguria; F17.210 Nicotine dependence, cigarettes, uncomplicated; F12.90 Cannabis use, unspecified, uncomplicated; E86.1 Hypovolemia; I10 Essential (primary) hypertension; E87.6 Hypokalemia; Z91.018 Allergy to other foods; Z82.49 Family history of ischemic heart disease and other diseases of the circulatory system; Z72.89 Other problems related to lifestyle; Z79.82 Long term (current) use of aspirin
CPT/HCPCS: 36415; 74176; 80048; 80053; 81003; 81015; 82150; 83605; 83690; 85025; 86140; 87070; 87073; 87076; 87077; 87185; 87186; 87205; 87640; 87641; 99406; A9270-GY; J1170; J1885; J2250; J2405; J2543; J2704; J3010; J3480

== ENCOUNTER 2016-10-09 06:41 | Inpatient (IN) | payer MEDICAID, OTHER ==
--- NOTE | 2016-09-25 14:15 | HP ---
CC: Patrick Warner MD; Simeon Brizuela MD ADMISSION HISTORY AND PHYSICAL: DATE OF ADMISSION: 10/09/16 CHIEF COMPLAINT: Colostomy (diverticulitis with abscess). HISTORY OF PRESENT ILLNESS: This is a 36-year-old generally healthy male who underwent laparotomy w ith drainage of retroperitoneal abscess and placement of end colostomy with Dr. Husain on 06/30/16. He had an unremarkable postoperative course, though did have a second abscess drained on 08/21/16 percutaneously by Radiology in the area of the left paracolic gutter. That had been preceded by kirsten e back pain. He completed an additional course of oral antibiotics and since then has been without pain, fever or chills. His colostomy has been working well. He underwent colonoscopy with Dr. Shell carter on 09/20/16 both via the colostomy as well as per rectum with essentially normal findings. Th e patient has discussed the proposed surgery with Dr. Husain including open partial colectomy, colo stomy reversal and probable placement of ureteral stents (by Dr. Warner). He will complete a mechani belinda bowel prep along with usual prophylactic antibiotics. He understands the expected perioperative and hospital course. He would like to proceed as scheduled. PAST MEDICAL HISTORY: Diverticulitis as noted above (initial episode in 2014) and then an episode i n June of this year resulting in abscess drainage and colostomy placement. He was also noted to be hypertensive during the last admission, but has been followed by his PCP and is no longer requiring any antihypertensives. PAST SURGICAL HISTORY: Limited to the above procedure. CURRENT MEDICATIONS: None. DRUG ALLERGIES: None. FAMILY HISTORY: Negative for anesthesia problems, bleeding or clotting disorders. SOCIAL HISTORY: The patient lives with his significant other and her son. 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 He continues to smoke, but is down to 3 cigarettes per day with the intention of quitting. He drinks on an average 24 ounces of beer per day. He smok es marijuana 1 to 2 times per day but denies any other recreational drug use. REVIEW OF SYSTEMS: General: No recent constitutional symptoms or acute illnesses other than descri bed in the HPI. HEENT: No problems reported. Cardiovascular: No chest pain, palpitations, history of heart murmur. Recently treated for hypertension but no longer requiring any antihypertensives. Respiratory: No history of asthma, chronic cough, or shortness of breath. GI: No upper GI sympto ms. Colostomy functioning well. See also per HPI. : No problems reported. Endocrine: No diab etes or thyroid dysfunction. Musculoskeletal: No problems reported. Neuropsych: No problems repo rted. Hematological and Oncological: No bleeding disorders. No history of sickle cell. No person al history of malignancy. PHYSICAL EXAMINATION GENERAL: Well-nourished, well-developed male in no acute distress. VITAL SIGNS: Height 72 inches, weight 180 pounds. Temperature 97.8, blood pressure 126/80, pulse 8 0, respirations 16. HEENT: Pupils equal and round, reactive. EOMs intact. No conjunctival pallor. Oropharynx: Mucous membranes moist. Teeth in good repair. No intraoral lesions. NECK: No lymphadenopathy, thyromegaly or masses. LUNGS: Clear to auscultation. No wheezes. HEART: Regular rate and rhythm. No murmur noted. ABDOMEN: Well-healed midline incision with some hypertrophic scarring left upper quadrant colostomy . No palpable masses, no palpable tenderness. No palpable inguinal hernias. GENITALIA: Otherwise not examined. EXTREMITIES: No edema. RECTAL: Not done. BACK: No spinous process or CVA tenderness. NEUROLOGIC: Grossly intact. SKIN: Warm and dry. No suspicious rashes or lesions. IMPRESSION: Colostomy (history of diverticulitis with abscess). PLAN: Open partial colectomy; colostomy reversal; probable ureteral stent placement (by Dr. Warner). AKIL DIAZ [id number]/[facility] #: [id number]
[~2016-10-09 06:41] MED LIST changes: +Buffered Lidocaine 0.9% SYRIN* 5 ML/SYR SYRINGE INTRADERM ONE; +ERTApenem(*) 1 GM in NS 0.9% 50 ML* 50 ML IVPB SCH; +Famotidine TAB* 20 MG PO ONE; +Ibuprofen TAB* 400 MG PO ONE; +Metoclopramide TAB* 10 MG PO ONE; -Mouth Piece, Nicotine* 1 EACH CARTRIDGE INH ONE; +Sodium Citrate/Citric Acid* 15 ML UDC PO ONE
[2016-10-09] MEDS ORDERED: Heparin VIAL(*) 5000 UNITS/ML VIAL (FIVE THOUSAND) ONE (07:02)
[2016-10-09] MEDS ORDERED: Ibuprofen TAB* 400 MG ONE (07:02)
[2016-10-09] MEDS ORDERED: Sodium Citrate/Citric Acid* 15 ML UDC ONE (07:03)
[2016-10-09] MEDS ORDERED: Famotidine TAB* 20 MG ONE (07:03)
[2016-10-09] MEDS ORDERED: Buffered Lidocaine 0.9% SYRIN* 5 ML/SYR SYRINGE ONE (07:03)
[2016-10-09] MEDS ORDERED: Metoclopramide TAB* 10 MG ONE (07:03)
[2016-10-09] MEDS ORDERED: Iohexol 180 (CONTRAST) 10 ML SDV IV ONE (07:18)
[2016-10-09] MEDS ORDERED: Lidocaine 2% EPI 1:200000 MPF* 20 ML VIAL ONE (08:09)
[2016-10-09] MEDS ORDERED: fentaNYL* 50 MCG/ML 2 ML VIAL (100 MCG VIAL) ONE ×4 (08:09→12:08)
[2016-10-09] MEDS ORDERED: Sodium Bicarbonate 8.4% SYR* 10 ML SYRINGE ONE (08:09)
[2016-10-09] MEDS ORDERED: Midazolam* 1 MG/ML 5 ML VIAL (5 MG) ONE ×2 (08:09)
[2016-10-09] MEDS ORDERED: Succinylcholine* 20 MG/ML 10 ML VIAL ONE (08:48)
[2016-10-09] MEDS ORDERED: Propofol* 10 MG/ML 20 ML BTL IV PUSH ONE ×2 (08:48→11:41)
--- NOTE | 2016-10-09 09:31 | RAD ---
CPT II Codes: 6045F INDICATION: Left-sided retrograde 4 left renal obstruction. 7 seconds of fluoroscopy time was used. 5 spot images demonstrates no definite hydronephrosis. There is placement of a left ureteral stent present. IMPRESSION: Placement of a left ureteral stent under fluoroscopic guidance.
[2016-10-09] MEDS ORDERED: Rocuronium* 10 MG/ML VIAL ONE ×2 (09:34→13:35)
[2016-10-09] MEDS ORDERED: Lactated Ringers 500 ml BAG* 500 ML IV PRN (10:14)
[2016-10-09] MEDS ORDERED: Ibuprofen TAB* 600 MG PO PRN (10:14)
[2016-10-09] MEDS ORDERED: fentaNYL* 50 MCG/ML 2 ML VIAL (100 MCG VIAL) IV PRN (10:18)
[2016-10-09] MEDS ORDERED: HYDROmorphone* 1 MG/ML 1 ML SYR IV PRN (10:18)
[2016-10-09] MEDS ORDERED: DiMENhydriNATE IV* 50 MG/ML VIAL IV PUSH PRN (10:18)
[2016-10-09] MEDS ORDERED: Ondansetron INJ* 2 MG/ML VIAL IV PRN ×2 (10:18→14:47)
[2016-10-09] MEDS ORDERED: Morphine INJ* 10 MG/ML 1 ML SYRINGE ONE (11:21)
[2016-10-09] MEDS ORDERED: Labetalol IV* 5 MG/ML 20 ML VIAL ONE ×2 (11:53→15:03)
[2016-10-09] MEDS ORDERED: Atropine 1MG/ML INJ* 1 ML VIAL ONE (14:26)
[2016-10-09] MEDS ORDERED: Edrophonium Chloride* 10 MG/ML 15 ML VIAL ONE (14:26)
[2016-10-09] MEDS ORDERED: Ropivacaine 0.2% EPIDURAL* 200 MG/100 ML BAG EPIDURAL ONE (14:37)
--- NOTE | 2016-10-09 15:04 | PN ---
Progress Note - Progress Note Note: Brief operative note: Pre-op: Hx perforated diverticulitis, s/p diverting colostomy Post-op: Same Procedure; Exploratory laparotomy with lysis of adhesions, splenic flexure take down, reversal of colostomy. Surgeon: Dr. Husain Kai [place]: Kassidy Bains [place]: GETYaya EBL: 400 cc Fluids: 3,300 cc LR Urine: 600 cc Drains: None Catheter: Pisano to gravity Specimen: Portion of descending and sigmoid colon Findings: See dictated op note
[2016-10-09] MEDS ORDERED: Labetalol IV* 5 MG/ML 20 ML VIAL IV PUSH PRN (16:38)
[2016-10-09] MEDS: Heparin VIAL(*) 5000 UNITS/ML VIAL (FIVE THOUSAND) SUBCUT SCH (21:49)
[2016-10-09] MEDS: Ropivacaine 0.2% EPIDURAL* 200 MG/100 ML BAG EPIDURAL SCH (22:07)
--- NOTE | 2016-10-09 23:43 | CONS ---
CC: Dr. Brizuela; Dr. Husain * CONSULTATION REPORT: DATE OF CONSULT: 10/09/16 PRIMARY CARE PROVIDER: Dr. Brizuela. REQUESTING PHYSICIAN FOR CONSULT: Dr. Husain. REASON FOR MEDICAL CONSULTATION: Evaluation and management of hypertension. HISTORY OF PRESENT ILLNESS: Mr. Granados is a 36-year-old male patient. I will refer you to Dr. Husain H and P for further details, but essentially a 36- year-old male patient, who ended up needing a laparotomy with a drainage of a retroperitoneal abscess and placement of end colostomy with Dr. Husain on 06/30. He did have a second abscess on August 21 that was percutaneously drained. The patient re-presented today. The patient was following with Dr. Husain. It was felt that the patient wanted to have reversal of the colostomy which he underwent today; however, it was noted postoperatively that he did have elevated blood pressure. His diastolics were 160/110. He did receive some labetalol now. His blood pressures in the 120/70s. He had had issues with this in the past. Previously when he was here originally in June, he did require amlodipine to go home with and also p.r.n. labetalol. He seemed to be well controlled. According to the patient, his blood pressure medications have been stopped by his primary care provider as his blood pressure has been well controlled. The patient now is denying having any chest pain. He says he is feeling well. He denies having a headache. He says his pain is controlled in his stomach. He denies feeling nauseous. He denies having any chest pain or shortness of breath, but because of his elevated blood pressures, we are asked to evaluate in consult. PAST MEDICAL HISTORY: Significant for: 1. Diverticulitis with associated abscess. 2. Hypertension. PAST SURGICAL HISTORY: 1. He has had a laparotomy with colostomy. 2. Now he has had a colostomy reversal. HOME MEDICATIONS: None. ALLERGIES: He is allergic to STRAWBERRIES. FAMILY HISTORY: Mother had a brain aneurysm and . Father's history is unknown. SOCIAL HISTORY: He does smoke about 3 cigarettes a day. He does drink 1 beer daily. He does smoke marijuana daily as well. Surrogate decision maker is his Saloni nieto. REVIEW OF SYSTEMS: There is no documented fever. He denied having any significant weight change. There was no double vision. He denies having any ear discharge. There is no rhinorrhea. There is no sore throat. No thyroid enlargement. He denies having any chest pain. There is no orthopnea. No nocturnal dyspnea. There is abdominal pain, but there is no nausea, no vomiting. No dysuria, no frequency. No loss of consciousness. No pruritus. No skin ulcerations. Review of 14 systems completed, all others negative. PHYSICAL EXAMINATION: Reveals currently blood pressure 122/90 with a pulse of 90, respirations 17, O2 sat 100%, temperature 97.7. General: At this time, Mr. Granados is a 36-year-old male patient. He appears to be well nourished, well developed. He does not appear to be in any acute distress. HEENT: Head atraumatic. Eyes, sclerae anicteric and not pale. Throat, oral mucosa appears to be moist. No oropharyngeal erythema. Neck: Supple. Heart: Sounds S1, S2. Regular rate and rhythm. No murmurs, rubs, or gallops. Lungs: Clear to auscultation bilaterally. No wheezes, rales, or rhonchi. Abdomen: Mildly distended. He was tender around the incision site. Bowel sounds are hypoactive. Extremities: Pulses were 2+ throughout. He has 5/5 strength. Neurologically, he is awake, alert, and oriented x3. Tongue midline. [employer] were equal. No focal deficits. Skin: Grossly intact with the exception he does have a midline abdominal incision which is covered with an ABD dressing. There is a scant amount of serosanguineous drainage, but otherwise is intact. DIAGNOSTIC STUDIES/LAB DATA: His labs preop revealed WBC 4.0, RBC of 4.58, hemoglobin 14.1, hematocrit of 43, platelet count of 239. INR was 1.07. Sodium 140, potassium of 4.4, chloride of 104, bicarb 29, BUN 9, creatinine of 0.81, his glucose of 93. Old medical records reviewed. ASSESSMENT AND PLAN: Mr. Granados is a 36-year-old male patient who comes into the surgical service today for an elective colostomy reversal which he underwent today with Dr. Husain. Postoperatively, he is having uncontrolled blood pressure. We are asked to evaluate in consult. Our recommendations at this point are: 1. Status post colostomy takedown and reversal. I will defer the management Dr. Husain and his team. 2. Hypertension. At this point, he is n.p.o. His blood pressure responding well on labetalol. I am going to continue p.r.n. labetalol for now. We may need to consider especially when we stop that epidural, he may need to back on amlodipine p.o. He was on 10 mg daily. We will need to follow along with them to start this at appropriate time when he is able to take p.o. medications and hopefully Surgery can let us know when he can take p.o., we will then start him on something more chronic if he truly needs it. 3. DVT prophylaxis: We will defer to the primary team. 4. Fluids, electrolytes, and nutrition: I would recommend a heart healthy diet , but I will defer to the primary team as he is n.p.o. currently. 5. Code status: Full code. TIME SPENT: Time spent on the consult was 60 minutes, greater than half the time was spent [id number] with the patient obtaining my history and physical, other half the time spent going over the plan of care with the patient and implementing plan of care. I did discuss the plan of care with my attending, Dr. Braswell, she is in agreement. PETROS MORROW NP [id number]/[facility] #: [id number] RACQUEL
[2016-10-10] MEDS: Heparin VIAL(*) 5000 UNITS/ML VIAL (FIVE THOUSAND) SUBCUT SCH ×3 (05:37→23:13)
--- NOTE | 2016-10-10 06:00 | OP ---
CC: Simeon Brizuela MD; Patrick Warner MD * DATE OF OPERATION: 10/09/16 - ROOM #340 DATE OF : 78 SURGEON: Dr. Husain. ASSISTANTS: Dr. Stanley and AKIL Rios ANESTHESIOLOGIST: Dr. Albrecht. ANESTHESIA: General, endotracheal. PRE-OP DIAGNOSIS: Diverticulitis with abscess and colostomy status. POST-OP DIAGNOSES: Diverticulitis with abscess and colostomy status and intraperitoneal adhesions. OPERATIVE PROCEDURE: Exploratory laparotomy, lysis of adhesions, partial colectomy, take down of colostomy, take down of splenic flexure. ESTIMATED BLOOD LOSS: 400 mL. IV FLUIDS: 3.3 L of crystalloid. URINE OUTPUT: 600 mL. SPECIMEN: Portion of descending and sigmoid colon and colostomy. DRAINS: None. COMPLICATIONS: None. COUNTS: Instrument, needle, and sponge counts were correct. DESCRIPTION OF PROCEDURE: The patient was transferred to the operating room and he was administered general anesthesia. He, prior to this, had cystoscopy and left ureteral stent placed by Dr. Warner. Please refer to his operative report. The rectum was irrigated with Betadine solution through a Pisano catheter. Colostomy was oversewn with silk. He was positioned and padded appropriately and he was prepped and draped in usual sterile fashion. He received appropriate intravenous antibiotics. Time-out was performed. Midline laparotomy was undertaken through the previous midline scar and extensive adhesions of omentum to the anterior abdominal wall was encountered. This revision was performed using sharp and blunt dissection along with cautery , cleaning the adhesions on the right side first. The omentum was freed from the anterior abdominal wall, the colostomy site was identified. The colostomy was encircled and it was divided after being stapled off with 2 firings of the TA 60 mm stapler divided between the staple lines. After freeing this, extensive adhesiolysis was performed again freeing omentum from the anterior abdominal wall on the right side of the abdomen and then freeing omentum from the small bowel. There were numerous interloop adhesions of small bowel that were divided and the small bowel was inspected, run from the ileocecal valve proximally to the ligament of Treitz. The small bowel was dissected free from the transverse colon mesentry. Most of the small bowel was completely freed. It was retracted to the right side of the abdomen. The sigmoid colon was then approached. The colon was thickened and traced proximally to the descending colon, which was adherent to the retroperitoneum in the site of the prior retroperitoneal abscess. The stent was able to be palpated in the retroperitoneum and so the left ureter was able to be preserved from harm. The distal colon staple line was able to be freed from the retroperitoneum without incident and using the LigaSure, mesentry of the colon was divided, staying close to the bowel heading distally to the rectosigmoid junction. It was in the area of the rectosigmoid junction that the bowel was felt to be more normal, while the distal descending and sigmoid colon all was rather thickened and chronically inflamed. The bowel was stapled off at the top of the rectum with the TA stapler and the transected colon was submitted as specimen. Next, the proximal colon was further mobilized from the area of the splenic flexure. This was a rather tedious dissection as this had previously been taken down and it was quite painstaking dissection to be able to mobilize this area of the splenic flexure all the way to the mid transverse colon using sharp and blunt dissection preserving the vasculature. Having completed this mobilization, it was determined that some additional mobilization in the rectum would need to be performed in order to create the colorectal anastomosis and so the dissection of the rectum was performed initially staying in the posterior avascular plane outside the rectal mesentry with mobilization around the lateral aspects dividing portions of the lateral stalks and then scoring the peritoneum in the anterior rectum in order to circumferentially mobilize the rectum. Once this had been adequately mobilized, the proximal colon was towelled off and the staple line was divided and sizers were placed. Ultimately , the proximal colon was sized for 28 mm EA stapler. This was placed into the colon, brought out with the post out the antimesenteric border in order to perform an end-to-side stapled anastomosis. The open end of the colon was then stapled off with the TA 60 stapler and additional sutures of 3-0 silk were placed over the staple line to reenforce it. Pursestring of 3-0 silk was placed around the anvil pin. The transanal stapler was passed by Dr. Stanley and the anastomosis was performed end-to-side fashion. The stapler was removed and the rings were noted to be intact. The stapled anastomosis was then tested with a bubbly test and there was no leak identified. The bowel was again inspected. There appeared to be excellent perfusion, no tension and hemostasis was assured. Copious lavage was performed until clear. The omentum was then placed over the area of the colorectal anastomosis and the small bowel was returned to its position. The colostomy site was closed internally with 0 Polysorb in figure-of- eight fashion and then the midline was closed with #1 Polysorb in running fashion and the wound was irrigated and closed with xin and it was towelled off and the ostomy site was excised using a 15 blade to incise the skin and then cautery was used to dissect the end of the colostomy from the subcutaneous tissues. Irrigation was performed and the anterior rectus fascia was closed with interrupted 0 Polysorb. A pursestring suture of 3 -0 Surgipro was placed to pursestring the wound but leaving it a gap about a 1 cm to allow packing. Dressings were applied then to the midline wound and the left lower quadrant wound. The patient was extubated and transferred to Recovery in stable condition. [id number]/[facility] #: [id number] RACQUEL
[2016-10-10 06:04] LABS: Hematocrit 41 % (42-52); Hemoglobin 13.2 g/dl (14.0-18.0); Mean Corpuscular HGB Conc 33 g/dl (31-36); Mean Corpuscular Hemoglobin 30 pg (27-31); Mean Corpuscular Volume 94 fL (80-94); Mean Platelet Volume 9 um3 (7.4-10.4); Red Blood Count 4.34 10^6/ul (4.0-5.4); Red Cell Distribution Width 15 % (10.5-15); White Blood Count 14.6 10^3/ul (3.5-10.8)
[2016-10-10 06:28] LABS: BUN/Creatinine Ratio 12.6 (8-20); Calcium 8.7 mg/dL (8.6-10.3); EGFR Non-African American 98.7 (>60); Magnesium 1.5 mg/dL (1.9-2.7); Potassium 4.1 mmol/L (3.5-5.0)
[2016-10-10] MEDS ORDERED: Benzocaine/Menthol LOZ* 1 LOZENGE PO PRN (08:16)
--- NOTE | 2016-10-10 08:20 | PN ---
Progress Note - Progress Note SOAP: Subjective: Feels good except for NGT/sore throat. C/o numbness of legs/side. Would like to consider iv pain meds instead of CEI. Objective: Vital Signs Temp 98.1 F 10/10/16 07:27 Pulse 92 10/10/16 07:27 Resp 16 10/10/16 07:27 BP 151/92 10/10/16 07:27 Pulse Ox 99 10/10/16 07:27 NAD Abd: dressing c/d/i; distended. Min tender. Intake & Output 10/09/16 10/10/16 10/10/16 18:59 06:59 18:59 Intake Total 3650 1998 Output Total 400 700 Balance 3250 1299 Weight 175 lb Intake: IV Fluids 3649 1998 LR 3650 1998 Oral 0 Output: NG Tube Drainage Amount 150 Owens 400 550 Other: # Bowel Movements 0 Assessment: POD#1 s/p colon rsxn / rvsl colostomy/ extensive FATEMEH. Doing well. Plan: Would keep CEI as has good pain control. Keep owens as need for monitoring U/O. Cepacol/ice ok. Keep NGT.
--- NOTE | 2016-10-10 08:21 | OP ---
CC: Dr. Marcus Husain; Dr. Simeon Brizuela * DATE OF OPERATION: 10/09/16 - ROOM #340 DATE OF : [birth year] - AGE/SEX: 36 years/male. SURGEON: Patrick Warner MD ANESTHESIOLOGIST: Dr. Gianfranco Albrecht. ANESTHESIA: Epidural and intravenous sedation. PRE-OP DIAGNOSIS: Diverticular abscess. POST-OP DIAGNOSIS: Diverticular abscess. OPERATIVE PROCEDURE: Cystoscopy, left retrograde, and left stent insertion. COMPLICATIONS: None. STENT USED: A 7-Somali stent, left ureter. POSTOPERATIVE CONDITION: Stable. INDICATIONS: Raulito Granados is a 36-year-old gentleman who was evaluated for a diverticular abscess. He had previously undergone diverting colostomy and is now being brought in by Dr. Marcus Husain for partial colon resection. Dr. Husain requested placement of a left ureteral stent to aid in intraoperative identification of the left ureter. DESCRIPTION OF PROCEDURE: After induction of epidural anesthesia and intravenous sedation, the patient was placed in dorsal lithotomy position, sequential compression devices were in place and functioning. 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 The remainder of the urethra was unremarkable. The bladder was examined and was unremarkable. Left retrograde pyelogram revealed no evidence of obstruction and a 7-Somali stent was introduced and positioned under fluoroscopy with good proximal and distal positioning obtained. An 18-Somali Pisano was placed for bladder drainage. The patient tolerated the procedure satisfactorily and was transferred to the operating room where Dr. Husain was going to do his part of the surgical procedure. [id number]/[facility] #: [id number] [facility]
[2016-10-10] MEDS: Ropivacaine 0.2% EPIDURAL* 200 MG/100 ML BAG EPIDURAL SCH (09:28)
[2016-10-10] MEDS: Morphine INJ* 2 MG/ML 1 ML SYRINGE IV PRN ×4 (12:20→16:25)
--- NOTE | 2016-10-10 12:33 | PN ---
Subjective Date of Service: 10/10/16 Interval History: HOSPITALIST PROGRESS NOTE Patient seen and examined at bedside. He feels better today, denies abdominal pain, NGT is bothering him. Family History: Unchanged from Admission Social History: Unchanged from Admission Past Medical History: Unchanged from Admission Objective Active Medications: Heparin Sodium (Porcine) (Heparin Vial(*)) 5,000 units SUBCUT Q8HR [facility] Last Admin: 10/10/16 05:37 Dose: 5,000 units Lactated Ringer's (Lactated Ringers 1000 Ml Bag*) 1,000 mls @ 150 mls/hr IV .per rate [facility] Last Admin: 10/09/16 22:10 Dose: 150 mls/hr Famotidine 20 mg/ Sodium (Chloride) 102 mls @ 408 mls/hr IVPB DAILY [facility] Last Admin: 10/10/16 07:59 Dose: 408 mls/hr Labetalol HCl (Trandate Iv*) 20 mg IV PUSH Q6H PRN PRN Reason: BLOOD PRESSURE Morphine Sulfate (Morphine Inj (Syringe)*) 2 mg IV Q1H PRN PRN Reason: PAIN - SEVERE Last Admin: 10/10/16 12:20 Dose: 2 mg Ondansetron HCl (Zofran Inj*) 4 mg IV Q4H PRN PRN Reason: NAUSEA/VOMITING Throat Lozenges (Chloraseptic Ian*) 1 ian PO Q6H PRN PRN Reason: SORE THROAT Last Admin: 10/10/16 09:27 Dose: 1 ian Vital Signs 10/10/16 10/10/16 10/10/16 08:00 11:50 12:20 Temperature 98.0 F Pulse Rate 93 Respiratory 16 16 16 Rate Blood Pressure 158/97 (mmHg) O2 Sat by Pulse 99 99 Oximetry Oxygen Devices in Use Now: None Appearance: Young male lying in bed in NAD Eyes: No Scleral Icterus Ears/Nose/Mouth/Throat: Mucous Membranes Moist Neck: Trachea Midline Respiratory: Symmetrical Chest Expansion and Respiratory Effort, Clear to Auscultation Cardiovascular: NL Sounds; No Murmurs; No JVD, RRR Neurological: Alert and Oriented x 3, NL Muscle Strength and Tone Lines/Tubes/Other Access: Clean, Dry and Intact Peripheral IV Result Diagrams: 10/10/16 05:29 10/10/16 05:29 Assess/Plan/Problems-Billing Assessment: Mr. Granados is a 36yo M with PMH of diverticulitis requiring colostomy, HTN, admitted for colostomy reversal. Hospitalist service consulted for uncontrolled HTN. - Patient Problems (1) HTN (hypertension) Comment: - Better controlled with labetalol IV. - Will start Amlodipine when able to take PO again. - Continue to monitor. (2) History of colostomy reversal Comment: - Management as per surgery. (3) DVT prophylaxis Comment: - SQ heparin. Status and Disposition: Inpatient.
[2016-10-10] MEDS ORDERED: HYDROmorphone PCA* 20 MG/20 ML PCA.SYRING PCA SCH (17:15)
[2016-10-10] MEDS ORDERED: HYDROmorphone PCA* 20 MG/20 ML PCA.SYRING ONE (17:33)
[2016-10-10] MEDS ORDERED: Ketorolac INJ* 30 MG/ML 1 ML VIAL ONE (18:17)
[2016-10-10] MEDS: Ketorolac INJ* 30 MG/ML 1 ML VIAL IV PUSH SCH ×2 (18:20→23:14)
[2016-10-11] MEDS: Heparin VIAL(*) 5000 UNITS/ML VIAL (FIVE THOUSAND) SUBCUT SCH ×3 (05:26→23:11)
[2016-10-11] MEDS: Ketorolac INJ* 30 MG/ML 1 ML VIAL IV PUSH SCH ×4 (05:26→23:12)
[2016-10-11] MEDS ORDERED: Famotidine IV* 10 MG/ML 2 ML (20 mg) ONE (08:49)
--- NOTE | 2016-10-11 08:52 | PN ---
Progress Note - Progress Note SOAP: Subjective: Notes more pain since CEI out. Better control now with VETERINARY TECHNICIAN INSTRUCTOR. No flatus. Has goal to walk 4 laps today. Objective: Vital Signs Temp 98.0 F 10/11/16 07:57 Pulse 93 10/11/16 07:57 Resp 14 10/11/16 06:00 BP 139/90 10/11/16 07:57 Pulse Ox 98 10/11/16 07:57 NAD NGT with drk fluid Abd: incis c/d/i; no erythema. L abd wound packing removed -- clean. Tender R> L. Intake & Output 10/10/16 10/11/16 10/11/16 18:59 06:59 18:59 Intake Total 1735 1717 Output Total 1025 1650 Balance 710 67 Intake: IV Fluids 1717 LR 1717 IVPB 1735 LR 1735 Oral 0 0 Output: NG Tube Drainage Amount 200 850 Urine 175 800 Pisano 650 Other: # Bowel Movements 0 Assessment: POD#2 s/p exlap/FATEMEH/colectomy/colostomy rvsl. Doing well. Plan: Keep NGT. Await bowel fct. Cont VETERINARY TECHNICIAN INSTRUCTOR. Ambulate.
--- NOTE | 2016-10-11 12:11 | PN ---
Hospitalist Progress Note HOSPITALIST NOTE BP is trending up, but responding to PRN Labetalol. NGT still in place. Plan to start Amlodipine when able to take PO again. Continue to monitor.
[2016-10-12] MEDS: Ketorolac INJ* 30 MG/ML 1 ML VIAL IV PUSH SCH ×3 (05:40→17:45)
[2016-10-12] MEDS: Heparin VIAL(*) 5000 UNITS/ML VIAL (FIVE THOUSAND) SUBCUT SCH ×3 (05:46→22:01)
--- NOTE | 2016-10-12 09:16 | PN ---
Progress Note - Progress Note Date of Service: 10/12/16 SOAP: Subjective:POD#3 ambulating in halls,no nausea,no flatus,minimal pain [] Objective:lungs:clear bilat;Heart:RRR;Abd:hypoactive bs,softly distended, minimal tenderness,dressing intact;Ext:no edema ,nontender Vital Signs Temp 97.9 F 10/12/16 08:02 Pulse 79 10/12/16 08:02 Resp 16 10/12/16 08:34 BP 153/87 10/12/16 08:02 Pulse Ox 99 10/12/16 08:34 Intake & Output 10/11/17 10/12/10/12/16 18:59 06:59 18:59 Intake Total 1705 1943 Output Total 850 1300 275 Balance 855 643 -275 Intake: IV Fluids 1704 1942 LR [id number] Oral 0 Output: NG Tube Drainage Amount 1000 Urine 850 300 275 Other: # Bowel Movements 0 [] Assessment:Doing well,POD#3 s/p ex lap,colectomy,FATEMEH,colostomy rev [] Plan:Await GI function,cbc and P3 today,continue NG,IVF,inspiron and ambulation []
[2016-10-12 09:34] LABS: Hematocrit 33 % (42-52); Hemoglobin 10.8 g/dl (14.0-18.0); Mean Corpuscular HGB Conc 33 g/dl (31-36); Mean Corpuscular Hemoglobin 31 pg (27-31); Mean Corpuscular Volume 93 fL (80-94); Mean Platelet Volume 9 um3 (7.4-10.4); Red Blood Count 3.53 10^6/ul (4.0-5.4); Red Cell Distribution Width 15 % (10.5-15); White Blood Count 7.5 10^3/ul (3.5-10.8)
[2016-10-12 09:53] LABS: Calcium 9.4 mg/dL (8.6-10.3); EGFR African American 171.7 (>60); EGFR Non-African American 133.5 (>60); Potassium 3.4 mmol/L (3.5-5.0)
[2016-10-13] MEDS: Ketorolac INJ* 30 MG/ML 1 ML VIAL IV PUSH SCH ×2 (00:10→05:54)
[2016-10-13] MEDS: Heparin VIAL(*) 5000 UNITS/ML VIAL (FIVE THOUSAND) SUBCUT SCH ×3 (05:54→21:10)
[2016-10-13] MEDS ORDERED: oxyCODONE/Acetamin 5/325 MG* TAB PO PRN ×2 (09:45)
--- NOTE | 2016-10-13 09:54 | PN ---
Progress Note - Progress Note Date of Service: 10/13/16 SOAP: Subjective: Has flatus and BM. 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 Anxious to have NGT out. Objective: Vital Signs Temp 97.9 F 10/13/16 07:27 Pulse 67 10/13/16 07:27 Resp 18 10/13/16 08:00 BP 141/76 10/13/16 07:27 Pulse Ox 98 10/13/16 07:47 NAD Abd: incis c/d/i no erythema; soft, NT; ostomy wound clean, no drainage, packing removed. Intake & Output 10/12/16 10/13/16 10/13/16 18:59 06:59 18:59 Intake Total 957 2080 Output Total 975 2175 300 Balance - Intake: IV Fluids 957 1970 LR 957 1970 Oral 110 Output: NG Tube Drainage Amount 1650 Urine 975 525 300 Laboratory Results - last 24 hr 10/12/16 09:09 Sodium 135 Potassium 3.4 L Chloride 97 L Carbon Dioxide 28 Anion Gap 10 BUN 6 Creatinine 0.67 Est GFR ( Amer) 171.7 Est GFR (Non-Af Amer) 133.5 BUN/Creatinine Ratio 9.0 Glucose 75 Calcium 9.4 Assessment: POD#4 s/p colectomy/colostomy reversal/FATEMEH Plan: D/C NGT. Adv diet. PO pain meds. D/c packing changes. Home 1-2 days.
[2016-10-13] MEDS ORDERED: Ibuprofen TAB* 600 MG PO PRN (09:55)
--- NOTE | 2016-10-13 10:16 | PN ---
Hospitalist Progress Note HOSPITALIST ADDENDUM Patient's NGT will be discontinued today and regular diet started. Recommend starting Amlodipine 5mg/day and continue to monitor BP. Will need this medication upon discharge and f/u with his PCP for BP monitoring.
[2016-10-13] MEDS: amLODIPine TAB* 5 MG PO SCH (10:19)
[2016-10-14] MEDS: Heparin VIAL(*) 5000 UNITS/ML VIAL (FIVE THOUSAND) SUBCUT SCH (06:09)
[2016-10-14 07:21] VITALS: BP 142/83
[2016-10-14] MEDS: amLODIPine TAB* 5 MG PO SCH (08:48)
== END 2016-10-14 10:26 | disposition home or self-care (01) | DRG 221 ==
LOC: AA 06:41 → SSU 14:47
PROVIDERS: ADMIT Surgery; ATTEND Surgery
PROC: 0T7D8ZZ Dilation of Urethra, Via Natural or Artificial Opening Endoscopic (ICD-10-PCS; 2016-10-09)
PROC: 0T778DZ Dilation of Left Ureter with Intraluminal Device, Via Natural or Artificial Opening Endoscopic (ICD-10-PCS; 2016-10-09)
PROC: BT1FZZZ Fluoroscopy of Left Kidney, Ureter and Bladder (ICD-10-PCS; 2016-10-09)
PROC: 0DNS0ZZ (ICD-10-PCS; 2016-10-09)
PROC: 0DN80ZZ Release Small Intestine, Open Approach (ICD-10-PCS; 2016-10-09)
PROC: 0DBM0ZZ Excision of Descending Colon, Open Approach (ICD-10-PCS; 2016-10-09)
PROC: 0DBN0ZZ Excision of Sigmoid Colon, Open Approach (ICD-10-PCS; 2016-10-09)
PROC: 0D9670Z Drainage of Stomach with Drainage Device, Via Natural or Artificial Opening (ICD-10-PCS; principal; 2016-10-09 08:00)
PROC: 0DP6XUZ Removal of Feeding Device from Stomach, External Approach (ICD-10-PCS; 2016-10-13)
DX: Z43.3 Encounter for attention to colostomy (principal); I10 Essential (primary) hypertension; F12.90 Cannabis use, unspecified, uncomplicated; F17.210 Nicotine dependence, cigarettes, uncomplicated; N35.9 Urethral stricture, unspecified; Z91.018 Allergy to other foods; Z82.49 Family history of ischemic heart disease and other diseases of the circulatory system
CPT/HCPCS: 36415; 74420; 80048; 83735; 85025; 88307; 94760; A9270-GY; C1776; C1876; J0330; J0461; J1335; J1644; J1885; J2250; J2270; J2405; J2704; J2795; J3010